=== PATIENT | male | born 1990 | race Caucasian/White ===

== ENCOUNTER 2016-10-07 02:30 | Emergency (ER) | payer OTHER ==
[~2016-10-07] VITALS: Ht 177.8 cm; Wt 82.2 kg
[2016-10-07 02:35] VITALS: Ht 177.8 cm; Wt 82.2 kg
[2016-10-07] MEDS ORDERED: SODIUM CHLORIDE 0.9% 1000ML 1,000 ML IV STA (03:08)
[2016-10-07] MEDS ORDERED: KETOROLAC TROMETHAMINE 30 MG/ML VIAL IV STA (03:08)
[2016-10-07 03:37] LABS: BASO % 0.3 %; BASO ABS # 0.02 K/uL (0-0.2); COMPLETE YES; EOS % 0.3 %; HEMATOCRIT 39.8 % (42-52); IG% 0.2 %; LYMPH % 27.7 %; LYMPH ABS # 1.82 K/uL (1.2-3.4); MEAN CELL VOLUME 86.1 fL (80-100); MEAN CORPUSCULAR HEMOGLOBIN 30.3 pg (25-34); MEAN CORPUSCULAR HGB CONC 35.2 g/dl (32-36); MEAN PLATELET VOLUME 8.8 fL (7.4-10.4); MONO % 10.4 %; NEUT % 61.1 %; PLATELET COUNT 183 K/uL (130-400); RED BLOOD COUNT 4.62 M/uL (4.7-6.1); WHITE BLOOD COUNT 6.56 K/uL (4.8-10.8)
[2016-10-07 03:54] LABS: BUN/CREATININE RATIO 9.7 (10-20); CALCIUM 8.4 mg/dl (8.5-10.1); CREATININE 1.2 mg/dl (0.60-1.40); POTASSIUM 3.7 mmol/L (3.5-5.1)
[2016-10-07 04:03] LABS: ALB/GLOB RATIO 1.2 (0.9-2)
[2016-10-07 04:28] LABS: LYME DISEASE AB IGG NEG (NEG); LYME DISEASE AB IGM NEG (NEG)
[2016-10-07] MEDS ORDERED: MoRPHine SULFATE 4 MG/ML 1 ML CARP\\VIAL IV STA (04:40)
[2016-10-07 04:44] LABS: URINE APPEARANCE CLEAR (CLEAR); URINE BILIRUBIN NEG (NEG); URINE COLOR YELLOW; URINE NITRITE NEG (NEG); URINE PH 6.5 (4.5-7.5); URINE SPECIFIC GRAVITY 1.019 (1.000-1.030); UROBILINOGEN NEG (NEG); ZZUR CULT IF INDIC CLEAN CATCH NO
[2016-10-07 04:52] LABS: MANUAL MICROSCOPIC REQUIRED? NO; REVIEW REQ? NO
--- NOTE | 2016-10-07 05:37 | EMERGENCY ROOM VISIT NOTE ---
History First contact with patient: 02:51 Chief Complaint: ILLNESS Stated Complaint: JOINT/MUSCLE/BONE PAIN,FATIGUE,HEADACHE,HOT/COLD History of Present Illness The patient is a 26 year old male who presents to the Emergency Room with complaints of fatigue, body aches, headache and nausea. The patient states that he has had joint pain and generalized body aches for the past 2 days. He states that prior to that, he had vomiting and diarrhea but this resolved. He reports the fatigue has been gradually worsening. He has had headaches. He reports some blisters on his hands and arms. He rates his overall discomfort an 8/10. The patient does report some neck pain, but is able to move his neck without difficulty. He has not noticed any fevers/chills. He has not taken any medication at home for the pain. Review of Systems A complete 10 point review of systems was reviewed with the patient with pertinent positives and negatives as per history of present illness. All else were negative. Past Medical/Surgical History Medical Problems: (1) Mesenteric lymphadenitis (2) Pneumonia (3) Rib fractures Family History Diabetes mellitus FH: cancer FH: heart disease FHx: lung disease Gallbladder disease Heart disease Hypertension Kidney disease Kidney stones Social History Smoking Status: Never Smoker Alcohol Use: none Drug Use: none Marital Status: single Housing Status: lives with family Occupation Status: employed Current/Historical Medications No Active Prescriptions or Reported Meds Allergies Coded Allergies: Acetaminophen (Verified Allergy, Unknown, Liver damage, 10/08/16) Reported by PT Physical Exam Vital Signs Date Time Temp Pulse Resp B/P (MAP) Pulse Ox O2 Delivery O2 Flow Rate FiO2 10/07/16 05:55 37.4 71 18 102/55 97 10/07/16 04:27 73 18 117/62 98 Room Air 10/07/16 02:35 37.4 91 18 132/74 98 Room Air Physical Exam VITALS: Vitals are noted on the nurse's note and reviewed by myself. Vital signs stable. GENERAL: This is a 26-year-old male, in no acute distress, nondiaphoretic, well- developed well-nourished. SKIN: There are a few small blisters over the hands and forearms. No petechiae or purpura. No further rashes. EARS: External auditory canals clear, tympanic membranes pearly pool without erythema or effusion bilaterally. EYES: Pupils equal round and reactive to light and accommodation. Conjunctivae without injection, sclerae without icterus. MOUTH: Mucous membranes moist. Tonsils are not enlarged. Pharynx without erythema or exudate. NECK: Supple without nuchal rigidity. No lymphadenopathy. Negative Kernig's and Brudzinski's. HEART: Regular rate and rhythm without murmurs gallops or rubs. LUNGS: Clear to auscultation bilaterally without wheezes, rales or rhonchi. ABDOMEN: Positive bowel sounds x 4. Soft, nontender to palpation. NEURO: Patient was alert and oriented to person place and time. Medical Decision & Procedures ER Provider Diagnostic Interpretation: Chest x-ray interpretation: No infiltrates. No cardiomegaly. No acute findings. Laboratory Results 10/07/16 03:20 Red Blood Count 4.62, Mean Corpuscular Volume 86.1, Mean Corpuscular Hemoglobin 30.3, Mean Corpuscular Hemoglobin Concent 35.2, Mean Platelet Volume 8.8, Neutrophils (%) (Auto) 61.1, Lymphocytes (%) (Auto) 27.7, Monocytes (%) (Auto) 10.4, Eosinophils (%) (Auto) 0.3, Basophils (%) (Auto) 0.3, Neutrophils # (Auto ) 4.01, Lymphocytes # (Auto) 1.82, Monocytes # (Auto) 0.68, Eosinophils # (Auto ) 0.02, Basophils # (Auto) 0.02 10/07/16 03:20 Test 10/07/16 03:20 10/07/16 04:25 White Blood Count 6.56 K/uL (4.8-10.8) Red Blood Count 4.62 M/uL (4.7-6.1) Hemoglobin 14.0 g/dL (14.0-18.0) Hematocrit 39.8 % (42-52) Mean Corpuscular Volume 86.1 fL (80-100) Mean Corpuscular Hemoglobin 30.3 pg (25-34) Mean Corpuscular Hemoglobin Concent 35.2 g/dl (32-36) Platelet Count 183 K/uL (130-400) Mean Platelet Volume 8.8 fL (7.4-10.4) Neutrophils (%) (Auto) 61.1 % Lymphocytes (%) (Auto) 27.7 % Monocytes (%) (Auto) 10.4 % Eosinophils (%) (Auto) 0.3 % Basophils (%) (Auto) 0.3 % Neutrophils # (Auto) 4.01 K/uL (1.4-6.5) Lymphocytes # (Auto) 1.82 K/uL (1.2-3.4) Monocytes # (Auto) 0.68 K/uL (0.11-0.59) Eosinophils # (Auto) 0.02 K/uL (0-0.5) Basophils # (Auto) 0.02 K/uL (0-0.2) RDW Standard Deviation 40.1 fL (36.4-46.3) RDW Coefficient of Variation 12.8 % (11.5-14.5) Immature Granulocyte % (Auto) 0.2 % Immature Granulocyte # (Auto) 0.01 K/uL (0.00-0.02) Anion Gap 6.0 mmol/L (3-11) Est Creatinine Clear Calc Drug Dose 98.0 ml/min Estimated GFR () 97.5 Estimated GFR (Non- 84.1 BUN/Creatinine Ratio 9.7 (10-20) Calcium Level 8.4 mg/dl (8.5-10.1) Total Bilirubin 0.4 mg/dl (0.2-1) Aspartate Amino Transf (AST/SGOT) 23 U/L (15-37) Alanine Aminotransferase (ALT/SGPT) 45 U/L (12-78) Alkaline Phosphatase 64 U/L (45-117) Total Creatine Kinase 153 U/L (39-308) Total Protein 6.7 gm/dl (6.4-8.2) Albumin 3.7 gm/dl (3.4-5.0) Globulin 3.0 gm/dl (2.5-4.0) Albumin/Globulin Ratio 1.2 (0.9-2) Lyme Disease IgG Antibody NEG (NEG) Lyme Disease IgM Antibody NEG (NEG) Monoscreen NEG (NEG) Urine Color YELLOW Urine Appearance CLEAR (CLEAR) Urine pH 6.5 (4.5-7.5) Urine Specific [place] 1.019 (1.000-1.030) Urine Protein NEG (NEG) Urine Glucose (UA) NEG (NEG) Urine Ketones NEG (NEG) Urine Occult Blood NEG (NEG) Urine Nitrite NEG (NEG) Urine Bilirubin NEG (NEG) Urine Urobilinogen NEG (NEG) Urine Leukocyte Esterase NEG (NEG) Medications Administered Medications (Trade) Dose Ordered Sig/Yoselyn Route Start Time Stop Time Status Last Admin Dose Admin Sodium Chloride 1,000 ml @ 999 mls/hr Q1H1M STAT IV 10/07/16 03:08 10/07/16 04:08 DC 10/07/16 03:40 999 MLS/HR Ketorolac Tromethamine (Toradol Inj) 30 mg NOW STAT IV 10/07/16 03:08 10/07/16 03:10 DC 10/07/16 03:39 30 MG Morphine Sulfate (MoRPHine SULFATE INJ) 4 mg NOW STAT IV 10/07/16 04:40 10/07/16 04:41 DC 10/07/16 04:49 4 MG ED Course The patient was evaluated as above. Labs were drawn and IV access was obtained. Patient was medicated with 1 L normal saline solution and 30 mg Toradol IV. Patient was reevaluated and stated he had increased pain. He was given 4 mg morphine for his joint pain with good relief. Discharge instructions were reviewed with the patient. The patient verbalized understanding of my assessment and treatment plan and was discharged home in good condition. Medical Decision Differential diagnosis includes tickborne illness, rhabdomyolysis, infection, elect avoid abnormality, pneumonia, meningitis, encephalitis among others. The patient is a 26-year-old male who presents today complaining of fatigue and generalized body aches. Labs revealed no leukocytosis, anemia or concerning electrolyte abnormalities. Chest x-ray was interpreted by myself and does not show any acute findings. Urinalysis was not suggestive of infection. The patient did improve with IV hydration and analgesics. Lyme test was negative. Ehrlichia is pending. There is no meningismus on exam to suggest meningitis. The patient was counseled on conservative measures and will follow-up with his primary care provider. Based on the patient's presentation and work up, I feel the patient is stable for outpatient treatment. The patient was educated to return to the emergency department for any worsening of their current condition or new/concerning symptoms. He will follow up with his PCP. Medication reconciliation: I attest that I have personally reviewed the patient 's current medication list. Blood pressure screening: Patient was found to have normal blood pressure on screening and does not require follow-up. Impression Primary Impression: Body aches Departure Information Dispostion Home / Self-Care Condition GOOD Prescriptions No Active Prescriptions or Reported Meds Referrals No Doctor, Assigned (PCP) Patient Instructions My [facility] Additional Instructions For pain control, you can use the following [id number] medicines (if >12 yo): - Regular strength (325mg/tab) Tylenol (acetaminophen) 2 tabs every 4-6 hours as needed. Do not exceed 12 tablets in a 24 hour period. Avoid taking more than 4 grams (4000 mg) of Tylenol per day. This includes any other sources of acetaminophen you may take on a regular basis. - Regular strength (200 mg/tab) Advil (ibuprofen) 1-2 tabs every 4-6 hours as needed. Do not exceed a dose of 3200 mg per day. Rest and drink plenty of fluids. Follow-up with your primary care provider this week for further evaluation. Return to the emergency department with any worsening or new/concerning symptoms.
[2016-10-07 05:55] VITALS: BP 102/55; PULSE 71; TEMP 37.4; O2SAT 97
--- NOTE | 2016-10-07 07:31 | DIAGNOSTIC IMAGING REPORT ---
SINGLE VIEW CHEST CLINICAL HISTORY: Fever. FINDINGS: An AP, portable, upright chest radiograph is compared to study dated 06/19/2015. The cardiomediastinal silhouette is unremarkable. The lungs and pleural spaces are clear. No pneumothorax is seen. The bony thorax is grossly intact. IMPRESSION: No active disease in the chest. Electronically signed by: Devin Kent M.D. 10/07/2016 7:30 AM Dictated Date/Time: 10/07/2016 7:30 AM
[2016-10-08] MEDS ORDERED: OXYC1TAB3 PO (19:08)
[2016-10-08] MEDS ORDERED: DOXY100T17 PO (19:08)
[2016-10-12 23:35] LABS: EHRLICHIA CHAFF IGG AB <1:64 (<1:64); EHRLICHIA CHAFF IGM AB <1:20 (<1:20)
[2016-10-31] MEDS ORDERED: DIPH1TAB87 PO (21:30)
[2017-01-10] MEDS ORDERED: METH4PAK PO (07:49)
== END 2016-10-07 05:55 | disposition home or self-care (01) ==
LOC: C.EDB 02:32 → C.EDA 05:55
DX: R52 Pain, unspecified (principal); I88.0 Nonspecific mesenteric lymphadenitis; Z83.3 Family history of diabetes mellitus; Z82.49 Family history of ischemic heart disease and other diseases of the circulatory system; Z84.1 Family history of disorders of kidney and ureter; S60.521A Blister (nonthermal) of right hand, initial encounter; S60.522A Blister (nonthermal) of left hand, initial encounter; S50.821A Blister (nonthermal) of right forearm, initial encounter; S50.822A Blister (nonthermal) of left forearm, initial encounter; X58.XXXA Exposure to other specified factors, initial encounter

== ENCOUNTER 2016-10-08 15:57 | Emergency (ER) | payer OTHER ==
[~2016-10-08] VITALS: Ht 177.8 cm; Wt 83.2 kg
[2016-10-08 16:08] VITALS: TEMP 36.9; Ht 177.8 cm; Wt 83.2 kg
[2016-10-08] MEDS ORDERED: KETOROLAC TROMETHAMINE 30 MG/ML VIAL IV STA (17:09)
[2016-10-08] MEDS ORDERED: OXYCODONE HCL IR 5 MG TAB (IMMEDIATE RELEASE) PO STA ×2 (17:09→19:24)
[2016-10-08] MEDS ORDERED: ONDANSETRON INJ 2 MG/ML 2 ML VIAL IV STA (17:09)
[2016-10-08] MEDS ORDERED: SODIUM CHLORIDE 0.9% 1000ML 1,000 ML IV STA (17:09)
--- NOTE | 2016-10-08 17:11 | EMERGENCY ROOM VISIT NOTE ---
History Report prepared by Peggy: Nayan Mendoza Under the Supervision of: Dr. Micheal Crenshaw D.O. First contact with patient: 17:02 Chief Complaint: ILLNESS Stated Complaint: HEADACHE, DIZZINESS, JOINT PAIN, LOWER/UPPER BACK History of Present Illness The patient is a 26 year old male who presents to the Emergency Room with complaints of constant back pain beginning three days ago. He currently rates his discomfort an 8/10 in severity. The patient states that he has neck pain, joint pain, headache, nausea, vomiting, dizziness, fatigue, and muscle pain. He notes that his nausea and vomiting began four nights ago, and everything else began three days ago. He denies recent travel, and urinary symptoms. The patient notes that he was in the ER on two nights ago, and his symptoms did not go away. He states that he was not given any medications. The patient notes that after his visit, his nausea and vomiting went away but then returned. The patient reports that he has been taking ibuprofen for his pain, but it is not working. He states that he has not had symptoms like this before. 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 He denies a history of Lyme disease, and using tobacco, alcohol, or drugs. The patient states he does not have a PCP. Source of History: patient Onset: three days ago Position: back (bilateral) Symptom Intensity: 8/10 Timing: constant Associated Symptoms: + headache, + neck pain, + nausea, + vomiting, + fatigue, No melena, No hematochezia, No urinary symptoms Note: Associated symptoms: joint pain, dizziness, fatigue, and muscle pain. Review of Systems See HPI for pertinent positives & negatives. A total of 10 systems reviewed and were otherwise negative. Past Medical & Surgical Medical Problems: (1) Mesenteric lymphadenitis (2) Pneumonia (3) Rib fractures Family History Diabetes mellitus FH: cancer FH: heart disease FHx: lung disease Gallbladder disease Heart disease Hypertension Kidney disease Kidney stones Social History Smoking Status: Never Smoker Alcohol Use: none Drug Use: none Marital Status: single Housing Status: lives with family Occupation Status: employed Current/Historical Medications Scheduled Doxycycline (Monohydrate) (Doxycycline Monohydrate), 100 MG PO BID Scheduled PRN Oxycodone Immediate Rel Tab (Roxicodone Ir), 1-2 TAB PO Q4H PRN for Severe Pain Allergies Coded Allergies: Acetaminophen (Verified Allergy, Unknown, Liver damage, 10/08/16) Reported by PT Physical Exam Vital Signs Date Time Temp Pulse Resp B/P (MAP) Pulse Ox O2 Delivery O2 Flow Rate FiO2 10/08/16 20:01 69 18 112/65 100 Room Air 10/08/16 19:10 90 12 127/64 98 Room Air 10/08/16 17:38 86 10/08/16 16:08 36.9 93 18 139/78 97 Room Air Physical Exam GENERAL: Patient is awake, alert, and in no acute distress. Patient is resting comfortably and showing mild signs of anxiety EYES: The conjunctivae are clear. The pupils are round and reactive. EARS, NOSE, MOUTH AND THROAT: The nose is without any evidence of any deformity. Mucous membranes are moist tongue is midline NECK: The neck is nontender and supple. RESPIRATORY: Normal respiratory effort is noted there is no evidence of wheezing rhonchi or rales CARDIOVASCULAR: Regular rate and rhythm noted there no murmurs rubs or gallops normal S1 normal S2 GASTROINTESTINAL: The abdomen is soft. Bowel sounds are present in all quadrants. Abdomen is nontender BACK: Diffuse tenderness noted over the midline and paravertebral musculature. No step-off noted range of motion in flexion extension as well as rotation no signs of muscle spasm noted MUSCULOSKELETAL/EXTREMITIES: There is no evidence of gross deformity full range of motion is noted in the hips and shoulders SKIN: There is no obvious evidence of any rash. There are no petechiae, pallor or cyanosis noted. NEUROLOGIC: Patient is awake alert and oriented x3 strength is symmetric patellar reflexes are 2+ bilaterally Medical Decision & Procedures ER Provider Diagnostic Interpretation: X-ray results as stated below per interpretation by me and the radiologist. SINGLE VIEW CHEST CLINICAL HISTORY: Generalized abdominal pain. FINDINGS: An AP, portable, upright chest radiograph is compared to study dated 10/07/2016. The examination is degraded by portable technique and patient rotation. The cardiomediastinal silhouette is unremarkable. The lungs and pleural spaces are clear. No pneumothorax is seen. The bony thorax is grossly intact. IMPRESSION: No active disease in the chest and no significant change from yesterday. Electronically signed by: Devin Kent M.D. 10/08/2016 5:58 PM Dictated Date/Time: 10/08/2016 5:57 PM Laboratory Results 10/08/16 17:17 Red Blood Count 4.97, Mean Corpuscular Volume 84.5, Mean Corpuscular Hemoglobin 30.2, Mean Corpuscular Hemoglobin Concent 35.7, Mean Platelet Volume 9.0, Neutrophils (%) (Auto) 71.1, Lymphocytes (%) (Auto) 17.3, Monocytes (%) (Auto) 11.4, Eosinophils (%) (Auto) 0.0, Basophils (%) (Auto) 0.1, Neutrophils # (Auto ) 5.59, Lymphocytes # (Auto) 1.36, Monocytes # (Auto) 0.90, Eosinophils # (Auto ) 0.00, Basophils # (Auto) 0.01 10/08/16 17:17 Test 10/08/16 17:17 White Blood Count 7.87 K/uL (4.8-10.8) Red Blood Count 4.97 M/uL (4.7-6.1) Hemoglobin 15.0 g/dL (14.0-18.0) Hematocrit 42.0 % (42-52) Mean Corpuscular Volume 84.5 fL (80-100) Mean Corpuscular Hemoglobin 30.2 pg (25-34) Mean Corpuscular Hemoglobin Concent 35.7 g/dl (32-36) Platelet Count 172 K/uL (130-400) Mean Platelet Volume 9.0 fL (7.4-10.4) Neutrophils (%) (Auto) 71.1 % Lymphocytes (%) (Auto) 17.3 % Monocytes (%) (Auto) 11.4 % Eosinophils (%) (Auto) 0.0 % Basophils (%) (Auto) 0.1 % Neutrophils # (Auto) 5.59 K/uL (1.4-6.5) Lymphocytes # (Auto) 1.36 K/uL (1.2-3.4) Monocytes # (Auto) 0.90 K/uL (0.11-0.59) Eosinophils # (Auto) 0.00 K/uL (0-0.5) Basophils # (Auto) 0.01 K/uL (0-0.2) RDW Standard Deviation 38.6 fL (36.4-46.3) RDW Coefficient of Variation 12.6 % (11.5-14.5) Immature Granulocyte % (Auto) 0.1 % Immature Granulocyte # (Auto) 0.01 K/uL (0.00-0.02) Erythrocyte Sedimentation Rate 10 mm/hr (0-14) Anion Gap 8.0 mmol/L (3-11) Est Creatinine Clear Calc Drug Dose 98.0 ml/min Estimated GFR () 97.5 Estimated GFR (Non- 84.1 BUN/Creatinine Ratio 5.7 (10-20) Calcium Level 9.0 mg/dl (8.5-10.1) Total Bilirubin 0.6 mg/dl (0.2-1) Direct Bilirubin 0.2 mg/dl (0-0.2) Aspartate Amino Transf (AST/SGOT) 57 U/L (15-37) Alanine Aminotransferase (ALT/SGPT) 101 U/L (12-78) Alkaline Phosphatase 79 U/L (45-117) Total Creatine Kinase 88 U/L (39-308) C-Reactive Protein 2.67 mg/dl (0-0.29) Total Protein 7.1 gm/dl (6.4-8.2) Albumin 3.9 gm/dl (3.4-5.0) Lipase 146 U/L (73-393) Lyme Disease IgG Antibody NEG (NEG) Lyme Disease IgM Antibody NEG (NEG) Laboratory results per my review. Medications Administered Medications (Trade) Dose Ordered Sig/Yoselyn Route Start Time Stop Time Status Last Admin Dose Admin Ketorolac Tromethamine (Toradol Inj) 30 mg NOW STAT IV 10/08/16 17:09 10/08/16 17:10 DC 10/08/16 17:25 30 MG Sodium Chloride 1,000 ml @ 999 mls/hr Q1H1M STAT IV 10/08/16 17:09 10/08/16 18:09 DC 10/08/16 17:28 999 MLS/HR Ondansetron HCl (Zofran Inj) 4 mg NOW STAT IV 10/08/16 17:09 10/08/16 17:10 DC 10/08/16 17:25 4 MG Oxycodone HCl (Roxicodone Immediate Rel Tab) 5 mg NOW STAT PO 10/08/16 17:09 10/08/16 17:10 DC 10/08/16 17:25 5 MG Ceftriaxone Sodium (Rocephin Inj) 1 gm NOW STAT IV 10/08/16 18:48 10/08/16 18:49 DC 10/08/16 19:29 1 GM Oxycodone HCl (Roxicodone Immediate Rel Tab) 5 mg NOW STAT PO 10/08/16 19:24 10/08/16 19:25 DC 10/08/16 19:28 5 MG Oxycodone HCl (Roxicodone Immediate Rel 5MG Home Pack) 1 homepack UD ONCE PO 10/08/16 19:30 10/08/16 19:31 DC 10/08/16 20:03 1 HOMEPACK ED Course 1703: The patient was evaluated in room A04B. A complete history and physical examination were performed. 170: Ordered Oxycodone HCl 5mg PO, Zofran Inj 4mg IV, NSS 1,000 ml @ 999 mls/ hr IV, Toradol Inj 30mg IV 8: Ordered Rocephin Inj 1gm IV 4: Ordered Oxycodone HCl 5mg PO 0: Ordered Oxycodone HCl 1 homepack PO 2011: Upon reevaluation, the patient is resting comfortably. I discussed the results and treatment plan with him. He verbalized agreement of the treatment plan. The patient was discharged home. Medical Decision Differential diagnosis: Etiologies such as musculoskeletal, disc herniation, fracture, aortic disease, metastatic disease, cord compression, discitis, infection, renal colic, gastrointestinal, acute exacerbation of chronic back pain, sciatica, cauda equina, as well as others were entertained. Medication Reconciliation: I attest that I have personally reviewed the patient' s current medications list. Blood pressure screening: Patient was found to have normal blood pressure on screening and does not require follow-up. The patient is a 26-year-old male who presented to the emergency department for an evaluation of joint pain and back pain. Overall the patient's clinical condition appears to be consistent with a tick borne illness especially given the time year. He was seen recently for similar complaints and at that time his workup did not show any definite cause for his symptoms. The patient's workup today also was not completely consistent with anyone condition. I discussed the patient's laboratory and radiographic studies with him. He was treated with pain medication in the emergency department and on subsequent reevaluation was feeling somewhat improved. He was encouraged to rest and avoid any strenuous activity. He was also encouraged to continue all medications as prescribed and follow-up with a primary care physician as soon as possible. He was also encouraged to return to the emergency department if symptoms worsen or if need arises. I would recommend a repeat Lyme screen because of the patient's condition and lack of positive testing at this time. I discussed this with him. Impression Primary Impression: Joint pain Additional Impressions: Myalgia Possible Lyme Disease Scribe Attestation The scribe's documentation has been prepared under my direction and personally reviewed by me in its entirety. I confirm that the note above accurately reflects all work, treatment, procedures, and medical decision making performed by me. Departure Information Dispostion Home / Self-Care Prescriptions Oxycodone Immediate Rel Tab (ROXICODONE IR) 5 Mg Tab 1-2 TAB PO Q4H Y for Severe Pain, #24 TAB Prov: Micheal Crenshaw, DO 10/08/16 Doxycycline (Monohydrate) (DOXYCYCLINE MONOHYDRATE) 100 Mg Tab 100 MG PO BID, #28 TABS Prov: Micheal Crenshaw, DO 10/08/16 Referrals No Doctor, Assigned (PCP) Forms HOME CARE DOCUMENTATION FORM, IMPORTANT VISIT INFORMATION, WORK / SCHOOL INSTRUCTIONS Patient Instructions ED Joint Pain, My [facility] Additional Instructions Continue using Motrin as prescribed for mild pain. Drink plenty clear liquids. Follow-up with your family doctor for next week. I would recommend a repeat Lyme test in one week. Problem Qualifiers Primary Impression: Joint pain Joint pain location: unspecified Qualified Codes: M25.50 - Pain in unspecified joint
[2016-10-08 17:30] LABS: BASO % 0.1 %; BASO ABS # 0.01 K/uL (0-0.2); COMPLETE YES; IG% 0.1 %; LYMPH % 17.3 %; LYMPH ABS # 1.36 K/uL (1.2-3.4); MEAN CELL VOLUME 84.5 fL (80-100); MEAN CORPUSCULAR HEMOGLOBIN 30.2 pg (25-34); MEAN CORPUSCULAR HGB CONC 35.7 g/dl (32-36); MONO % 11.4 %; NEUT % 71.1 %; PLATELET COUNT 172 K/uL (130-400); RED BLOOD COUNT 4.97 M/uL (4.7-6.1); WHITE BLOOD COUNT 7.87 K/uL (4.8-10.8)
[2016-10-08 17:47] LABS: BUN/CREATININE RATIO 5.7 (10-20); C-REACTIVE PROTEIN 2.67 mg/dl (0-0.29); CREATININE 1.2 mg/dl (0.60-1.40)
--- NOTE | 2016-10-08 17:59 | DIAGNOSTIC IMAGING REPORT ---
SINGLE VIEW CHEST CLINICAL HISTORY: Generalized abdominal pain. FINDINGS: An AP, portable, upright chest radiograph is compared to study dated 10/07/2016. The examination is degraded by portable technique and patient rotation. The cardiomediastinal silhouette is unremarkable. The lungs and pleural spaces are clear. No pneumothorax is seen. The bony thorax is grossly intact. IMPRESSION: No active disease in the chest and no significant change from yesterday. Electronically signed by: Devin Kent M.D. 10/08/2016 5:58 PM Dictated Date/Time: 10/08/2016 5:57 PM
[2016-10-08 18:23] LABS: LYME DISEASE AB IGG NEG (NEG); LYME DISEASE AB IGM NEG (NEG)
[2016-10-08] MEDS ORDERED: CEFTRIAXONE SOD INJ 1 GM ADDVIAL IV STA (18:48)
[2016-10-08] MEDS ORDERED: OXYC1TAB3 PO (19:08)
[2016-10-08] MEDS ORDERED: DOXY100T17 PO (19:08)
[2016-10-08] MEDS ORDERED: OXYCODONE IR HOME PACK PO ONE (19:30)
[2016-10-08 20:01] VITALS: BP 112/65; PULSE 69; O2SAT 100
[2016-10-31] MEDS ORDERED: DIPH1TAB87 PO (21:30)
[2017-01-10] MEDS ORDERED: METH4PAK PO (07:49)
== END 2016-10-08 20:11 | disposition home or self-care (01) ==
LOC: C.EDB 15:59 → C.EDA 20:11
DX: M25.519 Pain in unspecified shoulder (principal); M54.9 Dorsalgia, unspecified; M79.1 Myalgia; Z87.81 Personal history of (healed) traumatic fracture; Z88.6 Allergy status to analgesic agent; Z83.3 Family history of diabetes mellitus; Z80.9 Family history of malignant neoplasm, unspecified; Z82.49 Family history of ischemic heart disease and other diseases of the circulatory system; Z83.79 Family history of other diseases of the digestive system; Z84.1 Family history of disorders of kidney and ureter

== ENCOUNTER 2016-10-31 20:47 | Emergency (ER) | payer OTHER ==
[~2016-10-31] VITALS: Ht 180.3 cm; Wt 79.8 kg
[~2016-10-31 20:47] MED LIST: DOXY100T17 PO; OXYC1TAB3 PO
[2016-10-31 20:59] VITALS: TEMP 36.6; Ht 180.3 cm; Wt 79.8 kg
--- NOTE | 2016-10-31 21:26 | EMERGENCY ROOM VISIT NOTE ---
History Report prepared by Peggy: Chris Frederick Under the Supervision of: Dr. Charli Killian M.D. First contact with patient: 21:05 Chief Complaint: SKIN PROBLEM Stated Complaint: SEVERE POSION CRISTIAN History of Present Illness The patient is a 26 year old male who presents to the Emergency Room with complaints of a constant skin problem for the past five days. The patient states that he has poison cristian, and he has treated it with anti-itch cream, and Benadryl. He states that it itches and it joiner. He additionally states that his hands were numb earlier. The patient states that he had Lyme's disease, though it has been treated and gone away. He states that no one else around him is sick. Source of History: patient Onset: five days ago Position: other (skin) Quality: other (poison cristian) Timing: constant Associated Symptoms: + numbness Note: Associated symptoms: Itching and burning Review of Systems See HPI for pertinent positives & negatives. A total of 10 systems reviewed and were otherwise negative. Past Medical & Surgical Medical Problems: (1) Mesenteric lymphadenitis (2) Pneumonia (3) Rib fractures Old medical records were reviewed. Nurse's notes were reviewed and I agree with. Family History Diabetes mellitus FH: cancer FH: heart disease FHx: lung disease Gallbladder disease Heart disease Hypertension Kidney disease Kidney stones Social History Smoking Status: Never Smoker Alcohol Use: none Drug Use: none Marital Status: single Housing Status: lives with family Occupation Status: employed Current/Historical Medications Scheduled PRN Diphenhydramine Hcl (Benadryl Allergy), 25 MG PO UD PRN for ALLERGIC REACTION Allergies Coded Allergies: Acetaminophen (Verified Allergy, Unknown, Liver damage, 10/08/16) Reported by PT Physical Exam Vital Signs Date Time Temp Pulse Resp B/P (MAP) Pulse Ox O2 Delivery O2 Flow Rate FiO2 10/31/16 21:49 84 16 128/88 99 10/31/16 20:59 36.6 91 18 133/85 100 Room Air Physical Exam General: Non-ill appearing young male in no acute distress. HEENT: Normal cephalic atraumatic. Pupils are equal round and reactive to light. Extraocular movements are intact. Oropharynx is pink with moist mucous membranes. No swelling of the mouth lips or tongue. Neck: Supple with a midline trachea. No meningeal signs or stiffness, no JVD or bruits. No Stridor. Chest: Clear to auscultation bilaterally. No wheezes or rhonchi. No increased work of breathing. Heart: regular rate and rhythm. Abdomen: Soft nontender, nondistended without rebound guarding or rigidity. Extremities: No cyanosis clubbing or edema. No calf tenderness or assymetry Spine/Back. Non tender to palpation. No CVA tenderness Skin: Mild redness to the face from sunburn. Rash on torso as well as upper legs and arms that is raised. Excoriated from itching. Linear in places consistent with poison cristian. Good turgor. Neurologic exam: Cranial nerves two through 12 are intact. Motor and sensation are intact and symmetrical throughout. Medical Decision & Procedures Medications Administered Medications (Trade) Dose Ordered Sig/Yoselyn Route Start Time Stop Time Status Last Admin Dose Admin Prednisone (PredniSONE TAB) 60 mg NOW STAT PO 10/31/16 21:16 10/31/16 21:17 DC 10/31/16 21:23 60 MG ED Course 2104: Past medical records reviewed. The patient was evaluated in room A9, and a complete history and physical examination were performed. 2115: Prednisone 60mg PO 2128: Upon reevaluation, the patient is feeling well. I discussed the results and treatment plan with him. He verbalized agreement of the treatment plan. The patient was discharged home. Medical Decision Differentials include, but are not limited to; poison cristian, infection, scabies. Blood pressure Screening: Patient was found to have normal blood pressure on screening and does not require follow-up. Medication Reconciliation: I attest that I have personally reviewed the patient' s current medication list. This patient comes in with a red itchy rash is very consistent with a allergic dermatitis/poison cristian. There are several linear areas. I do not think this is scabies. It looks more like poison cristian. He is going to keep the area clean use calamine lotion. He is also going use antihistamine such as Benadryl but do not take before drinking, driving, working. He was warned that it could make him drowsy. Also started him on prednisone 60 mg by mouth here as well as a taper over the next 2 weeks. He should return if: worsening of symptoms, fever chills, redness or warmth, any new problems or concerns and follow up with doctor this week for recheck. Impression Primary Impression: Poison cristian [place] Attestation The scribe's documentation has been prepared under my direction and personally reviewed by me in its entirety. I confirm that the note above accurately reflects all work, treatment, procedures, and medical decision making performed by me. Departure Information Dispostion Home / Self-Care Referrals No Doctor, Assigned (PCP) Forms HOME CARE DOCUMENTATION FORM, IMPORTANT VISIT INFORMATION, WORK / SCHOOL INSTRUCTIONS Patient Instructions My [facility] Additional Instructions Rest. Keep skin clean and dry. May apply calamine lotion. For itching, May use Benadryl 25-50 mg every 8 hours as needed Benadryl may make you drowsy and do not take before drinking, driving, working May use Zyrtec or Claritin during the day instead is a or potentially less sedating Do not take these medications with any other medications that make you sleepy Take the prednisone taper as directed 60 mg a day for 3 days then 40 mg a day for 3 days then 20 mg a day for 3 days then 10 mg a day for 3 days then stop Then stop Return if: fever or chills, worsening of symptoms, redness or warmth, any new problems or concerns Up with your doctor this week for recheck if not better
[2016-10-31] MEDS ORDERED: DIPH1TAB PO (21:30)
[2016-10-31 21:49] VITALS: BP 128/88; PULSE 84; O2SAT 99
[2017-01-10] MEDS ORDERED: METH4PAK PO (07:49)
== END 2016-10-31 21:50 | disposition home or self-care (01) ==
LOC: C.EDB 20:47 → C.EDA 21:50
DX: L23.7 Allergic contact dermatitis due to plants, except food (principal); L55.9 Sunburn, unspecified; Z87.01 Personal history of pneumonia (recurrent); Z83.3 Family history of diabetes mellitus; Z80.9 Family history of malignant neoplasm, unspecified; Z82.49 Family history of ischemic heart disease and other diseases of the circulatory system; Z84.1 Family history of disorders of kidney and ureter

== ENCOUNTER 2017-01-09 21:09 | Emergency (ER) | payer OTHER ==
[~2017-01-09] VITALS: Ht 180.3 cm; Wt 80.1 kg
[~2017-01-09 21:09] MED LIST changes: +DIPH1TAB PO; -DOXY100T17 PO; -OXYC1TAB3 PO
[2017-01-09 21:11] VITALS: TEMP 36.7; Ht 180.3 cm; Wt 80.1 kg
[2017-01-09] MEDS ORDERED: KETOROLAC TROMETHAMINE 60 MG/2 ML VIAL IM STA (21:50)
[2017-01-09] MEDS ORDERED: MoRPHine SULFATE 10 MG/ML CARP/VIAL IM STA (21:50)
--- NOTE | 2017-01-09 22:57 | DIAGNOSTIC IMAGING REPORT ---
LUMBAR SPINE 5 VIEWS HISTORY: Low back pain. COMPARISON: Lumbar spine 05/28/2014. FINDINGS: There is no fracture. No subluxation. Disc spaces are preserved. IMPRESSION: No fracture or subluxation within the lumbar spine. Electronically signed by: Octavio Cruz M.D. 01/09/2017 10:56 PM Dictated Date/Time: 01/09/2017 10:54 PM
[2017-01-09] MEDS ORDERED: OXYC1TAB3 PO (23:19)
--- NOTE | 2017-01-09 23:20 | EMERGENCY ROOM VISIT NOTE ---
History First contact with patient: 21:34 Chief Complaint: BACK PAIN Stated Complaint: BACK/HIP/LEG PAIN History of Present Illness The patient is a 26 year old male who presents to the Emergency Room with complaints of low back pain with radiation into the left hip and leg. The patient states that he was at the gym lifting weights and running and when he left, he developed pain and low back. The pain radiates down the left buttock into the leg and the fourth and fifth toes. He has tried heat and ibuprofen without relief. He denies any numbness, weakness, fevers/chills, urinary symptoms or saddle paresthesias. He denies any history of back problems. He rates his discomfort an 8/10. He denies any abdominal pain, nausea or vomiting. Review of Systems A complete 10 point review of systems was reviewed with the patient with pertinent positives and negatives as per history of present illness. All else were negative. Past Medical/Surgical History Medical Problems: (1) Mesenteric lymphadenitis (2) Pneumonia (3) Rib fractures Family History Diabetes mellitus FH: cancer FH: heart disease FHx: lung disease Gallbladder disease Heart disease Hypertension Kidney disease Kidney stones Social History Smoking Status: Never Smoker Alcohol Use: none Drug Use: none Marital Status: single Housing Status: lives with family Occupation Status: employed Current/Historical Medications Scheduled PRN Oxycodone Ir (Roxicodone Ir), 1-2 TAB PO Q4H PRN for Pain Physical Exam Vital Signs Date Time Temp Pulse Resp B/P (MAP) Pulse Ox O2 Delivery O2 Flow Rate FiO2 01/09/17 23:25 87 18 144/87 97 01/09/17 23:07 87 18 144/87 97 Room Air 01/09/17 21:11 36.7 103 18 142/96 96 Room Air Physical Exam VITALS: Vitals are noted on the nurse's note and reviewed by myself. No abnormalities noted. GENERAL: This is a 26-year-old male, in no acute distress, nondiaphoretic, well- developed well-nourished. SKIN: The skin was without rashes. EYES: Pupils equal round and reactive to light and accommodation. The Extraocular movements intact. NECK: Supple without nuchal rigidity. No cervical spine tenderness. HEART: Regular rate and rhythm without murmurs gallops or rubs. LUNGS: Clear to auscultation bilaterally without wheezes, rales or rhonchi. ABDOMEN: Soft, nontender to palpation. MUSCULOSKELETAL: No muscle atrophy, erythema, or edema noted of the back. There is mild tenderness over the lumbar region. There are no muscle spasms. The patient is slow to move around with maximum pain with flexion. Negative straight leg raise test. Strength 5/5 in bilateral lower extremities. NEURO: Patient was alert and oriented to person place and time. Normal sensation to light and sharp touch. Deep tendon reflexes 2+ in the lower extremities. Dorsalis pedis pulse 2+ bilaterally. Medical Decision & Procedures ER Provider Diagnostic Interpretation: LUMBAR SPINE 5 VIEWS HISTORY: Low back pain. COMPARISON: Lumbar spine 05/28/2014. FINDINGS: There is no fracture. No subluxation. Disc spaces are preserved. IMPRESSION: No fracture or subluxation within the lumbar spine. Medications Administered Medications (Trade) Dose Ordered Sig/Yoselyn Route Start Time Stop Time Status Last Admin Dose Admin Ketorolac Tromethamine (Toradol Inj) 60 mg NOW STAT IM 01/09/17 21:50 01/09/17 21:51 DC 01/09/17 21:59 60 MG Morphine Sulfate (MoRPHine SULFATE INJ) 8 mg NOW STAT IM 01/09/17 21:50 01/09/17 21:51 DC 01/09/17 22:00 8 MG Oxycodone HCl (Roxicodone Immediate Rel 5MG Home Pack) 1 homepack UD ONCE PO 01/09/17 23:30 01/09/17 23:31 DC 01/09/17 23:23 1 HOMEPACK ED Course The patient was evaluated as above. Patient was medicated with 8 mg morphine IM and 60 mg Toradol IM. Lumbar spine x-rays was performed and read by radiology as above. Patient was reevaluated and reported some relief. He will be discharged home. Discharge instructions were reviewed with the patient. The patient verbalized understanding of my assessment and treatment plan and was discharged home in good condition. Medical Decision Differential diagnosis includes cauda equina syndrome, cord compression, disc herniation, muscle spasm, lumbar strain, epidural abscess, malignancy, transverse myelitis, urinary tract infection, colitis, diverticulitis, kidney stone, among others. The patient is a 26-year-old male who presents today complaining of lumbar back pain with radiation into the left leg. Lumbar spine x-rays were obtained and read by radiology with no acute findings. Patient was treated with IM morphine and Toradol with some relief. The patient has radicular symptoms and I do feel he will benefit from a course of a steroid. He was given a prescription for pain medication as well. There is nothing on exam to suggest cauda equina syndrome or cord compression. He was advised to follow-up with his primary care provider for further evaluation and treatment of his back pain. The patient was educated to return to the emergency department for any worsening of their current condition, numbness of legs, weakness, bowel/bladder incontinence , or new/concerning symptoms. He verbalized understanding of my assessment is she will plan was discharged home in good condition. Based on the patient's presentation and work up, I feel the patient is stable for outpatient treatment. [] will follow up with []. Medication Reconcilliation Current Medication List: was personally reviewed by me Blood Pressure Screening Patient's blood pressure: Elevated blood pressure Blood pressure disposition: Elevated BP felt to be situational Impression Primary Impression: Lumbar radiculopathy Departure Information Dispostion Home / Self-Care Condition GOOD Prescriptions Methylprednisolone (MEDROL DOSEPAK) 4 Mg Brandon 0 PO DAILY, #1 PKT Prov: Emerita Griffiths .CLEMENTE 01/10/17 Oxycodone Ir (Roxicodone Ir) 5 Mg Tab 1-2 TAB PO Q4H Y for Pain, #15 TAB For Initial Treatment Prov: Emerita Griffiths PA-C 01/09/17 Referrals Mateusz Ramirez M.D. (MEDICAL) (PCP) Patient Instructions My [facility] Additional Instructions You have been treated in the Emergency Department for Back Pain. You have received pain medicine in the emergency department which impairs your ability to operate a vehicle. It is illegal for you to drive after receiving these medicines. You have been prescribed OxyIR to be used for pain control. This is a narcotic medication. You cannot drive or consume alcohol while on this medicine. This medicine should only be used for pain that cannot be controlled with over-the- counter pain medicines. For pain control, you can use the following [id number] medicines (if >12 yo): - Regular strength (325mg/tab) Tylenol (acetaminophen) 2 tabs every 4-6 hours as needed. Do not exceed 12 tablets in a 24 hour period. Avoid taking more than 4 grams (4000 mg) of Tylenol per day. This includes any other sources of acetaminophen you may take on a regular basis. - Regular strength (200 mg/tab) Advil (ibuprofen) 1-2 tabs every 4-6 hours as needed. Do not exceed a dose of 3200 mg per day. If this is an acute injury, ice can be applied to the area of pain for the first 3 days to help decrease pain and inflammation. After the first 3 days, a heating pad can be used over the area for continued soothing relief. You should schedule a follow-up appointment in 2-3 days with your Primary Care Provider for further evaluation and treatment of your back pain. Return to the Emergency Department if your current symptoms worsen despite treatment course outlined above, or if you develop any of the following symptoms : intractable pain despite aforementioned treatment course, loss of control of your bowel or bladder, numbness or tingling in your groin, or development of a fever.
[2017-01-09 23:25] VITALS: BP 144/87; PULSE 87; O2SAT 97
[2017-01-09] MEDS ORDERED: OXYCODONE IR HOME PACK PO ONE (23:30)
[2017-01-10] MEDS ORDERED: METH4PAK PO (07:49)
== END 2017-01-09 23:26 | disposition home or self-care (01) ==
LOC: C.EDB 21:09
DX: M54.16 Radiculopathy, lumbar region (principal); Z87.01 Personal history of pneumonia (recurrent); Z83.3 Family history of diabetes mellitus; Z80.9 Family history of malignant neoplasm, unspecified; Z82.49 Family history of ischemic heart disease and other diseases of the circulatory system; Z84.1 Family history of disorders of kidney and ureter

== ENCOUNTER 2017-11-22 14:51 | Emergency (ER) | payer OTHER ==
[~2017-11-22] VITALS: Ht 175.3 cm; Wt 81.6 kg
[2017-11-22 14:55] VITALS: TEMP 36.9; Ht 175.3 cm; Wt 81.6 kg
[2017-11-22 17:12] LABS: BASO % 0.4 %; BASO ABS # 0.03 K/uL (0-0.2); EOS % 0.1 %; EOS ABS # 0.01 K/uL (0-0.5); HEMATOCRIT 43.4 % (42-52); HEMOGLOBIN 15.2 g/dL (14.0-18.0); IG# 0.01 K/uL (0.00-0.02); LYMPH % 28.9 %; LYMPH ABS # 2.24 K/uL (1.2-3.4); MEAN CELL VOLUME 85.9 fL (80-100); MEAN CORPUSCULAR HEMOGLOBIN 30.1 pg (25-34); MONO % 11.7 %; MONO ABS # 0.91 K/uL (0.11-0.59); NEUT % 58.8 %; NEUT ABS # 4.56 K/uL (1.4-6.5); PLATELET COUNT 207 K/uL (130-400); RED CELL DISTRIBUTION WIDTH CV 12.5 % (11.5-14.5); RED CELL DISTRIBUTION WIDTH SD 39.1 fL (36.4-46.3); WHITE BLOOD COUNT 7.76 K/uL (4.8-10.8)
[2017-11-22] MEDS ORDERED: KETOROLAC TROMETHAMINE 15 MG/ML VIAL IV STA ×2 (17:21→19:09)
[2017-11-22] MEDS ORDERED: ONDANSETRON INJ 2 MG/ML 2 ML VIAL IV STA (17:21)
[2017-11-22] MEDS ORDERED: SODIUM CHLORIDE 0.9% 1000ML 1,000 ML IV STA (17:21)
[2017-11-22 17:32] LABS: ALBUMIN 4.3 gm/dl (3.4-5.0); CALCIUM 9.3 mg/dl (8.5-10.1); CREATININE 1.12 mg/dl (0.60-1.40); POTASSIUM 4.5 mmol/L (3.5-5.1)
--- NOTE | 2017-11-22 18:08 | DIAGNOSTIC IMAGING REPORT ---
CHEST ONE VIEW PORTABLE CLINICAL HISTORY: 27 years-old Male presenting with bodyaches, fever. TECHNIQUE: Portable upright AP view of the chest was obtained. COMPARISON: 10/08/2016. FINDINGS: Cardiomediastinal silhouette normal. Lungs and pleural spaces clear. Osseous structures normal. Upper abdomen normal. IMPRESSION: 1. No acute cardiopulmonary disease. Electronically signed by: Abebe Singletary M.D. 11/22/2017 6:06 PM Dictated Date/Time: 11/22/2017 6:06 PM
[2017-11-22 19:49] LABS: MONOSPOT NEG (NEG)
[2017-11-22] MEDS ORDERED: DOXYCYCLINE HYCLATE 100 MG CAP PO ONE (20:45)
[2017-11-22] MEDS ORDERED: DOXY100C PO (20:47)
--- NOTE | 2017-11-22 20:47 | EMERGENCY ROOM VISIT NOTE ---
History First contact with patient: 17:07 Chief Complaint: ILLNESS Stated Complaint: JOINT/BODY PAIN,DIZZINESS History of Present Illness The patient is a 27 year old male who presents to the Emergency Room with complaints of body aches and fatigue. The patient states that for the past week , he has had some mild body aches and has been feeling fatigued. His symptoms worsened today. He reports pain throughout his body and joints. He has been slightly nauseous but has not vomited. He feels very fatigued. He states that he has felt like he is alternating hot and cold, but has not noticed any fevers. He has had headaches which come and go but does not currently have a headache. He states that the pain is all over but is primarily in his back and hips. He rates his discomfort as 7/10. He states it is a constant, throbbing pain. He does report a history of Lyme diagnosis made last year. He was treated with antibiotics at that time. He denies recent tick bites but does state that he fishes frequently outside. He denies sore throat, cough, chest pain, shortness of breath, abdominal pain, or urinary symptoms. Review of Systems A complete 10 point review of systems was reviewed with the patient with pertinent positives and negatives as per history of present illness. All else were negative. Past Medical/Surgical History Medical Problems: (1) Mesenteric lymphadenitis (2) Pneumonia (3) Rib fractures Family History Diabetes mellitus FH: cancer FH: heart disease FHx: lung disease Gallbladder disease Heart disease Hypertension Kidney disease Kidney stones Social History Smoking Status: Never Smoker Alcohol Use: none Drug Use: none Marital Status: single Housing Status: lives with family Occupation Status: employed Current/Historical Medications Scheduled Doxycycline Hyclate (Vibramycin), 100 MG PO BID Physical Exam Vital Signs Date Time Temp Pulse Resp B/P (MAP) Pulse Ox O2 Delivery O2 Flow Rate FiO2 11/22/17 20:53 70 18 125/65 97 Room Air 11/22/17 18:34 67 18 128/67 97 Room Air 11/22/17 16:55 94 18 153/90 100 Room Air 11/22/17 14:55 36.9 91 20 130/86 98 Room Air Physical Exam VITALS: Vitals are noted on the nurse's note and reviewed by myself. Vital signs stable. GENERAL: This is a 27-year-old male, in no acute distress, nondiaphoretic, well- developed well-nourished. SKIN: No rashes noted. EARS: External auditory canals clear, tympanic membranes pearly pool without erythema or effusion bilaterally. EYES: Pupils equal round and reactive to light and accommodation. MOUTH: Mucous membranes moist. Tonsils are not enlarged. Pharynx without erythema or exudate. NECK: Supple without nuchal rigidity. No lymphadenopathy. No meningismus. HEART: Regular rate and rhythm without murmurs gallops or rubs. LUNGS: Clear to auscultation bilaterally without wheezes, rales or rhonchi. ABDOMEN: Positive bowel sounds x 4. Soft, nontender to palpation. NEURO: Patient was alert and oriented to person place and time. Medical Decision & Procedures ER Provider Diagnostic Interpretation: CHEST ONE VIEW PORTABLE CLINICAL HISTORY: 27 years-old Male presenting with bodyaches, fever. TECHNIQUE: Portable upright AP view of the chest was obtained. COMPARISON: 10/08/2016. FINDINGS: Cardiomediastinal silhouette normal. Lungs and pleural spaces clear. Osseous structures normal. Upper abdomen normal. IMPRESSION: 1. No acute cardiopulmonary disease. Laboratory Results 11/22/17 17:00 Red Blood Count 5.05, Mean Corpuscular Volume 85.9, Mean Corpuscular Hemoglobin 30.1, Mean Corpuscular Hemoglobin Concent 35.0, Mean Platelet Volume 9.0, Neutrophils (%) (Auto) 58.8, Lymphocytes (%) (Auto) 28.9, Monocytes (%) (Auto) 11.7, Eosinophils (%) (Auto) 0.1, Basophils (%) (Auto) 0.4, Neutrophils # (Auto ) 4.56, Lymphocytes # (Auto) 2.24, Monocytes # (Auto) 0.91, Eosinophils # (Auto ) 0.01, Basophils # (Auto) 0.03 11/22/17 17:00 Test 11/22/17 17:00 White Blood Count 7.76 K/uL (4.8-10.8) Red Blood Count 5.05 M/uL (4.7-6.1) Hemoglobin 15.2 g/dL (14.0-18.0) Hematocrit 43.4 % (42-52) Mean Corpuscular Volume 85.9 fL (80-100) Mean Corpuscular Hemoglobin 30.1 pg (25-34) Mean Corpuscular Hemoglobin Concent 35.0 g/dl (32-36) Platelet Count 207 K/uL (130-400) Mean Platelet Volume 9.0 fL (7.4-10.4) Neutrophils (%) (Auto) 58.8 % Lymphocytes (%) (Auto) 28.9 % Monocytes (%) (Auto) 11.7 % Eosinophils (%) (Auto) 0.1 % Basophils (%) (Auto) 0.4 % Neutrophils # (Auto) 4.56 K/uL (1.4-6.5) Lymphocytes # (Auto) 2.24 K/uL (1.2-3.4) Monocytes # (Auto) 0.91 K/uL (0.11-0.59) Eosinophils # (Auto) 0.01 K/uL (0-0.5) Basophils # (Auto) 0.03 K/uL (0-0.2) RDW Standard Deviation 39.1 fL (36.4-46.3) RDW Coefficient of Variation 12.5 % (11.5-14.5) Immature Granulocyte % (Auto) 0.1 % Immature Granulocyte # (Auto) 0.01 K/uL (0.00-0.02) Anion Gap 6.0 mmol/L (3-11) Est Creatinine Clear Calc Drug Dose 100.9 ml/min Estimated GFR () 105.3 Estimated GFR (Non- 90.8 BUN/Creatinine Ratio 11.2 (10-20) Calcium Level 9.3 mg/dl (8.5-10.1) Total Bilirubin 1.0 mg/dl (0.2-1) Aspartate Amino Transf (AST/SGOT) 218 U/L (15-37) Alanine Aminotransferase (ALT/SGPT) 347 U/L (12-78) Alkaline Phosphatase 70 U/L (45-117) Total Protein 8.0 gm/dl (6.4-8.2) Albumin 4.3 gm/dl (3.4-5.0) Globulin 3.7 gm/dl (2.5-4.0) Albumin/Globulin Ratio 1.2 (0.9-2) Lyme Disease IgG Antibody NEG (NEG) Monoscreen NEG (NEG) Medications Administered Medications (Trade) Dose Ordered Sig/Yoselyn Route Start Time Stop Time Status Last Admin Dose Admin Sodium Chloride 1,000 ml @ 999 mls/hr Q1H1M STAT IV 11/22/17 17:21 11/22/17 18:21 DC 11/22/17 17:45 999 MLS/HR Ketorolac Tromethamine (Toradol Inj) 15 mg NOW STAT IV 11/22/17 17:21 11/22/17 17:23 DC 11/22/17 17:46 15 MG Ondansetron HCl (Zofran Inj) 4 mg NOW STAT IV 11/22/17 17:21 11/22/17 17:23 DC 11/22/17 17:45 4 MG Ketorolac Tromethamine (Toradol Inj) 15 mg NOW STAT IV 11/22/17 19:09 11/22/17 19:10 DC 11/22/17 19:25 15 MG Doxycycline Hyclate (Vibramycin Cap) 100 mg ONE ONCE PO 11/22/17 20:45 11/22/17 20:46 DC 11/22/17 20:47 100 MG Medical Decision Differential diagnosis includes Lyme disease, mononucleosis, pneumonia, anaplasmosis, Ehrlichia, among others. The patient is a 27-year-old male who presents today complaining of body aches and fatigue. Labs revealed no leukocytosis or concerning electrolyte abnormality. Labs do show a transaminitis, with AST of 218 and ALT 347. Lyme IgM was found to be positive. Monospot was negative. Due to the transaminitis , I did add testing for Ehrlichia and anaplasmosis. Patient will be treated with doxycycline. He was advised to avoid Tylenol alcohol and follow-up with his PCP for recheck of his LFTs. He was medicated with IV fluids and Toradol with improvement of symptoms. Based on the patient's presentation and work up, I feel the patient is stable for outpatient treatment. The patient was educated to return to the emergency department for any worsening of their current condition or new/concerning symptoms. He will follow up with his PCP. Medication Reconcilliation Current Medication List: was personally reviewed by me Blood Pressure Screening Patient's blood pressure: Normal blood pressure Impression Primary Impression: Lyme disease Departure Information Dispostion Home / Self-Care Condition GOOD Prescriptions Doxycycline Hyclate (VIBRAMYCIN) 100 Mg Cap 100 MG PO BID for 21 Days, #42 CAP Prov: Emerita Griffiths ., CLEMENTE 11/22/17 Referrals Mateusz Ramirez M.D. (MEDICAL) (PCP) Patient Instructions My [facility] Additional Instructions Your Lyme test was found to be positive. Confirmatory testing is pending. You were prescribed doxycycline to be taken twice daily for 21 days. This is an antibiotic. All antibiotics have the potential to cause diarrhea. Stop this medication and contact a medical provider if you were to develop any significant adverse side effects including: wheezing, shortness of breath, passing out, vomiting, or a diffuse rash. Always take antibiotics as directed and COMPLETE the ENTIRE course regardless of the improvement of your symptoms. For pain control, you can use the following [id number] medicines (if >12 yo): - Regular strength (325mg/tab) Tylenol (acetaminophen) 2 tabs every 4-6 hours as needed. Do not exceed 12 tablets in a 24 hour period. Avoid taking more than 4 grams (4000 mg) of Tylenol per day. This includes any other sources of acetaminophen you may take on a regular basis. - Regular strength (200 mg/tab) Advil (ibuprofen) 1-2 tabs every 4-6 hours as needed. Do not exceed a dose of 3200 mg per day. Rest and drink plenty of fluids. Schedule follow-up with your primary care provider this week for recheck. Return to the emergency department with any worsening or new/concerning symptoms.
[2017-11-22 20:53] VITALS: BP 125/65; PULSE 70; O2SAT 97
== END 2017-11-22 21:01 | disposition home or self-care (01) ==
LOC: C.EDB 14:55
DX: A69.20 Lyme disease, unspecified (principal)

== ENCOUNTER 2017-11-26 18:23 | Inpatient (IN) | payer OTHER ==
[~2017-11-26] VITALS: Ht 177.8 cm; Wt 83.1 kg
[~2017-11-26 18:23] MED LIST changes: -DIPH1TAB PO; +DOXY100C PO
[2017-11-26] MEDS ORDERED: SODIUM CHLORIDE 0.9% 1000ML 1,000 ML IV STA (19:33)
[2017-11-26 20:11] LABS: BASO % 0.4 %; BASO ABS # 0.03 K/uL (0-0.2); EOS % 0.6 %; EOS ABS # 0.05 K/uL (0-0.5); HEMATOCRIT 41.3 % (42-52); HEMOGLOBIN 14.1 g/dL (14.0-18.0); IG# 0.02 K/uL (0.00-0.02); LYMPH % 36.7 %; LYMPH ABS # 2.99 K/uL (1.2-3.4); MEAN CELL VOLUME 86.9 fL (80-100); MEAN CORPUSCULAR HEMOGLOBIN 29.7 pg (25-34); MEAN CORPUSCULAR HGB CONC 34.1 g/dl (32-36); MEAN PLATELET VOLUME 8.9 fL (7.4-10.4); MONO % 10.1 %; MONO ABS # 0.82 K/uL (0.11-0.59); NEUT ABS # 4.24 K/uL (1.4-6.5); PLATELET COUNT 211 K/uL (130-400); RED CELL DISTRIBUTION WIDTH CV 12.5 % (11.5-14.5); RED CELL DISTRIBUTION WIDTH SD 40.1 fL (36.4-46.3); WHITE BLOOD COUNT 8.15 K/uL (4.8-10.8)
[2017-11-26 20:30] LABS: ALBUMIN 3.9 gm/dl (3.4-5.0); CALCIUM 8.6 mg/dl (8.5-10.1); CREATININE 1.02 mg/dl (0.60-1.40); POTASSIUM 3.8 mmol/L (3.5-5.1)
--- NOTE | 2017-11-26 20:45 | DIAGNOSTIC IMAGING REPORT ---
CHEST 2 VIEWS ROUTINE CLINICAL HISTORY: lyme eval for cardiomegaly COMPARISON STUDY: Chest radiograph November 22, 2017. FINDINGS: Lung volumes are normal. No pneumothorax or pleural effusion is noted. Pulmonary vascularity is normal. No consolidation is identified. Cardiac size is normal. Mediastinal contours are normal. The appearance of the chest is unchanged. IMPRESSION: No acute cardiopulmonary findings. Normal cardiac size. Electronically signed by: Terell Thompson M.D. 11/26/2017 8:43 PM Dictated Date/Time: 11/26/2017 8:43 PM
[2017-11-26] MEDS ORDERED: CEFTRIAXONE SOD INJ 1 GM ADDVIAL IV STA (20:48)
[2017-11-26] MEDS ORDERED: CEFTRIAXONE SOD 350MG/ML 1 GM VIAL IM STA (21:46)
--- NOTE | 2017-11-26 22:16 | History and Physical ---
History & Physical Date & Time of Service: Nov 26, 2017 at 21:50 Chief Complaint: Salazar, Fatique, Disoriented, Body Pain, Primary Care Physician: No Doctor, Assigned, PCP was Dr. Ramirez; however he retired. He is switching to [facility] PCP per patient History of Present Illness Source: patient This is a 27-year-old male who has no significant past medical history who presents to [facility] secondary to multiple vague complaints 2-3 weeks. Patient was last seen in ED on 11/22/17 secondary to myalgias, body aches, fatigue. Workup revealed transaminitis with AST 218, ALT 345, Lyme IgM positive, Lyme IgG negative, Monospot negative, hepatitis A, B, C negative, Ehrlichia, anaplasmosis negative, EBV antibody high. He was diagnosed with Lyme 's disease, Western blot still pending, was placed on doxycycline 100 mg twice daily for 21 day course and recommended to follow-up PCP. Unfortunately patient 's symptoms progressed, did not improve and patient overall feels worse. He has had 8 doses of doxycycline. Currently he complains of fatigue, joint aches , palpitations "my heart is racing out of my chest," low back pain "like my back is breaking," pelvic discomfort, restlessness, dyspnea on exertion, disoriented, feeling slow and foggy, occasional blurred vision, night sweats. No noted weight loss. Denies documented fever, chills, lightheadedness, dizziness, presyncope symptoms, recent upper respiratory infections, chest pain , nausea, vomiting, diarrhea, constipation, abdominal pain, increased frequency or urgency with urination, dysuria, hematuria, hematochezia, melena. In ED patient had 1 g Rocephin, IV fluids 1 L. Troponin elevated slightly at 0.05, CRP elevated slightly at 0.35. Further lab work revealed white blood cell count 8.15, H&H 14.1 and 41.3 respectively, platelet count 211, AST down to 92, BMP unremarkable. Due to patient failing outpatient treatment, worsening of symptoms, elevated troponin patient is going to be admitted under observation for further evaluation and treatment. Past Medical/Surgical History Medical Problems: (1) Mesenteric lymphadenitis Status: Resolved Surgical Hx: Denies surgical history Family History Diabetes mellitus FH: cancer FH: heart disease FHx: lung disease Gallbladder disease Heart disease Hypertension Kidney disease Kidney stones Social History 32 ounces of caffeine daily, occasional pre work out. Prior to present illness was working out and lifting daily, now currently unable to work out secondary to symptoms. Smoking Status: Never Smoker Smokeless Tobacco Use: Unknown Alcohol Use: none Drug Use: none Marital Status: single Housing status: lives with family (mother, grandmother, "old man.") Occupational Status: employed Immunizations History of Influenza Vaccine: No History of Tetanus Vaccine?: Unknown History of Pneumococcal: No History of Hepatitis B Vaccine: Unknown Allergies Coded Allergies: Acetaminophen (Verified Allergy, Unknown, Liver damage, 10/08/16) Reported by PT Home Medications Scheduled Doxycycline Hyclate (Vibramycin), 100 MG PO BID Review of Systems As noted per HPI, 10 systems reviewed and negative unless noted above. Physical Exam Vital Signs Date Time Temp Pulse Resp B/P (MAP) Pulse Ox O2 Delivery O2 Flow Rate FiO2 11/26/17 19:57 75 11/26/17 19:51 82 16 135/77 98 Room Air 11/26/17 18:31 36.7 92 18 161/90 100 Room Air General Appearance: WD/WN (Male, appears fatigued, appears age), no apparent distress Head: normocephalic, atraumatic Eyes: normal inspection, PERRL, EOMI, sclerae normal ENT: normal ENT inspection, hearing grossly normal, pharynx normal, + pertinent finding (Mucous membranes moist) Neck: supple, no adenopathy, thyroid normal, no JVD Respiratory/Chest: chest non-tender, lungs clear, normal breath sounds, no respiratory distress, no accessory muscle use Cardiovascular: regular rate, rhythm, no edema, no gallop, no JVD, no murmur, normal peripheral pulses Abdomen/GI: normal bowel sounds, non tender, soft, no organomegaly Back: normal inspection, no CVA tenderness, no muscle spasm, normal range of motion (difficulty with sitting forward in bed) Extremities/Musculoskelatal: normal inspection, no calf tenderness, normal capillary refill, no pedal edema, normal range of motion 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/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: 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 as tested, alert, normal mood/affect, oriented x 3 Skin: normal color, warm/dry, no rash Lymphatic: + inguinal node abnormality (left inguinal adenopathy) Diagnostics Laboratory Results Results Past 24 Hours Test 11/26/17 19:59 11/26/17 20:02 Range/Units White Blood Count 8.15 4.8-10.8 K/uL Red Blood Count 4.75 4.7-6.1 M/uL Hemoglobin 14.1 14.0-18.0 g/dL Hematocrit 41.3 42-52 % Mean Corpuscular Volume 86.9 80-100 fL Mean Corpuscular Hemoglobin 29.7 25-34 pg Mean Corpuscular Hemoglobin Concent 34.1 32-36 g/dl Platelet Count 211 130-400 K/uL Mean Platelet Volume 8.9 7.4-10.4 fL Neutrophils (%) (Auto) 52.0 % Lymphocytes (%) (Auto) 36.7 % Monocytes (%) (Auto) 10.1 % Eosinophils (%) (Auto) 0.6 % Basophils (%) (Auto) 0.4 % Neutrophils # (Auto) 4.24 1.4-6.5 K/uL Lymphocytes # (Auto) 2.99 1.2-3.4 K/uL Monocytes # (Auto) 0.82 0.11-0.59 K/uL Eosinophils # (Auto) 0.05 0-0.5 K/uL Basophils # (Auto) 0.03 0-0.2 K/uL RDW Standard Deviation 40.1 36.4-46.3 fL RDW Coefficient of Variation 12.5 11.5-14.5 % Immature Granulocyte % (Auto) 0.2 % Immature Granulocyte # (Auto) 0.02 0.00-0.02 K/uL Sodium Level 141 136-145 mmol/L Potassium Level 3.8 3.5-5.1 mmol/L Chloride Level 104 98-107 mmol/L Carbon Dioxide Level 31 21-32 mmol/L Anion Gap 6.0 3-11 mmol/L Blood Urea Nitrogen 16 7-18 mg/dl Creatinine 1.02 0.60-1.40 mg/dl Est Creatinine Clear Calc Drug Dose 114.3 ml/min Estimated GFR () 117.9 Estimated GFR (Non- 101.7 BUN/Creatinine Ratio 15.3 10-20 Random Glucose 98 70-99 mg/dl Calcium Level 8.6 8.5-10.1 mg/dl Total Bilirubin 0.7 0.2-1 mg/dl Direct Bilirubin 0.2 0-0.2 mg/dl Aspartate Amino Transf (AST/SGOT) 19 15-37 U/L Alanine Aminotransferase (ALT/SGPT) 92 12-78 U/L Alkaline Phosphatase 63 45-117 U/L C-Reactive Protein 0.35 0-0.29 mg/dl Total Protein 7.0 6.4-8.2 gm/dl Albumin 3.9 3.4-5.0 gm/dl Bedside Troponin I 0.050 0-0.045 ng/ml CXR normal EKG ECbpm, NSR, RI 130ms, QTC 431ms, No ST or T wave changes Impression Assessment and Plan Assessment and Plan: This is a 27-year-old male who has no significant past medical history who presents to [facility] secondary to multiple vague complaints 2-3 weeks. Patient was last seen in ED on 11/22/17 secondary to myalgias, body aches, fatigue. Workup revealed transaminitis with AST 218, ALT 345, Lyme IgM positive, Lyme IgG negative, Monospot negative, hepatitis A, B, C negative, Ehrlichia, anaplasmosis negative, EBV antibody high. He was diagnosed with Lyme 's disease, Western blot still pending, was placed on doxycycline 100 mg twice daily for 21 day course and recommended to follow-up PCP. Unfortunately patient's symptoms progressed, did not improve and patient overall feels worse. He has had 8 doses of doxycycline, last dose this morning. In ED patient had 1 g Rocephin, IV fluids 1 L. Troponin elevated slightly at 0.05, CRP elevated slightly at 0.35. Further lab work revealed white blood cell count 8.15, H&H 14.1 and 41.3 respectively, platelet count 211, AST down to 92, BMP unremarkable. Due to patient failing outpatient treatment, worsening of symptoms, elevated troponin patient is going to be admitted under observation for further evaluation and treatment. Ddx: lyme disease, Lyme myocarditis, Lyme pericarditis, undiagnosed viral illness, autoimmune disease Lyme disease with multiple associated symptoms fatigue, malaise, joint aches -Admit under observation telemetry -Give additional 1 g Rocephin this evening, begin 2 g Rocephin daily on 11/27/17 -Consult infectious disease Dr. Oneil secondary to Lyme's disease -Consult cardiology Dr. Norman -Complete echocardiogram to rule out pericarditis/myocarditis secondary to Lyme' s disease -Repeat CBC, BMP in a.m. -Check lumbar spine x-ray secondary to patient complaining of significant discomfort Elevated Troponin -serial troponins -consult cardiology -complete echocardiogram Low Back Pain -check lumbar spine film -allergy to APAP -will add toradol 15mg q6hr prn for pain Agree with above H and P. Briefly 27M presents with ongoing fatigue, Body ache and back pain for few weeks now. Was in ER recently at that time workup showed LYME IG M positive and was discharged on doxycycline. But still not feeling better. Has similar ongoing symptoms. denies fevers. No chest pain or sob. No nausea. No diarrhea. Currently resting comfortably and hemodynamically stable.Denies any tick bite [place] 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 Ig M was positive on 11/22 but igG was negative when he was in Er. Confirmation test pending. Anaplasmosis test is negative.LFTs improved from last Er visit Question of lyme carditis as POC troponin mildly elevated in Er. follow echo. Started on iv Rocephin. Consult ID and Cardiology. Consider other etiologies if Lyme confirmatory test negative. Back pain f/u xray Resuscitation Status Full Code Discussed with patient and girlfriend at bedside. He wishes all measures be taken and to be a full code VTE Prophylaxis Will order VTE Prophylaxis: No Reason for no VTE drug order: Treatment not indicated Reason no Mechanical VTE Order: Treatment not indicated
[2017-11-26 22:41] VITALS: BP 140/86; PULSE 68; TEMP 36.6; O2SAT 97; Ht 177.8 cm; Wt 83.1 kg
--- NOTE | 2017-11-26 22:45 | DIAGNOSTIC IMAGING REPORT ---
LUMBAR SPINE RADIOGRAPHS CLINICAL HISTORY: Low back pain, new onset, +lyme disease, no known injury COMPARISON: Lumbar spine radiographs January 09, 2017. FINDINGS: Alignment of the lumbar spine is anatomic. Vertebral body heights are maintained. There is no fracture or suspicious lesion by radiography. Disc spaces are preserved. There is mild endplate osteophytosis at L4-L5. Sacroiliac joints are intact. The bowel gas pattern is normal. IMPRESSION: 1. No acute lumbar spine fracture or subluxation. 2. Mild osteophytosis at L4-L5 with preserved disc spaces. Electronically signed by: Terell Thompson M.D. 11/26/2017 10:43 PM Dictated Date/Time: 11/26/2017 10:42 PM
[2017-11-26] MEDS ORDERED: IV FLUIDS COMPLETED PRN (23:00)
[2017-11-26] MEDS ORDERED: CEFTRIAXONE SOD INJ 1000 MG in DEXTROSE 5% 50ML IV SCH (23:00)
[2017-11-26 23:33] VITALS: BP 134/84; PULSE 86; TEMP 36.4; O2SAT 97
--- NOTE | 2017-11-26 23:46 | EMERGENCY ROOM VISIT NOTE ---
History Report prepared by Peggy: Marco Lima Under the Supervision of: Dr. Dutch iRco M.D. First contact with patient: 19:25 Chief Complaint: HEADACHE Stated Complaint: QUICK, FATIQUE, DISORIENTED, BODY PAIN, History of Present Illness The patient is a 27 year old male who presents to the Emergency Room with complaints of body aches, joint pain, and headaches x3 weeks. The patient notes he has had the symptoms waxing and waning x3 weeks. He notes x4 days ago he was seen here for the same complaints and had the Lyme Disease test performed, which was positive. He notes he was prescribed Doxycycline, which he has been taking. He came in because he states he isn't getting better. He notes his headaches have become more frequent, but are still waxing and waning, and denies having one at this time. He feels very rundown. He denies having any chest pain or shortness of breath but does feel palpitations. He denies having a fever since starting the Doxycycline. The patient states he is eating/ drinking normally and denies abdominal pain, nausea/vomiting/diarrhea, or any rashes. Source of History: patient Onset: x3 weeks Symptom Intensity: moderate Quality: ache Timing: constant, waxes/wanes Associated Symptoms: + headache, No fevers, No chills, No sorethroat, No cough, No neck pain, No chest pain, No SOB, No nausea, No vomiting, No abdominal pain, No diarrhea, No urinary symptoms, No weakness, No numbness, No rash Review of Systems See HPI for pertinent positives & negatives. A total of 10 systems reviewed and were otherwise negative. Constitutional: No fever, No chills Respiratory: No cough, No shortness of breath Cardiovascular: No chest pain Abdomen: No pain, No nausea, No vomiting, No diarrhea Musculoskeletal: + joint pain, + muscle pain Genitourinary - Male: No hematuria, No dysuria, No urinary frequency, No urinary urgency Neurologic: + problem reported (headache (waxing and waning)) Integumentary: No rash Past Medical & Surgical Medical Problems: (1) Mesenteric lymphadenitis Family History Diabetes mellitus FH: cancer FH: heart disease FHx: lung disease Gallbladder disease Heart disease Hypertension Kidney disease Kidney stones Social History Smoking Status: Never Smoker Alcohol Use: none Drug Use: none Marital Status: single Housing Status: lives with family Occupation Status: employed Current/Historical Medications Scheduled Doxycycline Hyclate (Vibramycin), 100 MG PO BID Allergies Coded Allergies: Acetaminophen (Verified Allergy, Unknown, Liver damage, 10/08/16) Reported by PT Physical Exam Vital Signs Date Time Temp Pulse Resp B/P (MAP) Pulse Ox O2 Delivery O2 Flow Rate FiO2 11/26/17 19:57 75 11/26/17 19:51 82 16 135/77 98 Room Air 11/26/17 18:31 36.7 92 18 161/90 100 Room Air Physical Exam Constitutional: Vital signs reviewed. Eyes: Pupils are equal round reactive to light. Conjunctiva are noninjected. ENT: Pharynx is clear without erythema or exudate. Dry mucous membranes. Neck supple without meningeal signs. Respiratory: Clear to auscultation bilaterally. Breath sounds are equal bilaterally. Cardiovascular: Regular rate and rhythm. No rubs or gallops. GI: Soft, nondistended and nontender. Bowel sounds are present. Musculoskeletal: No peripheral edema. No lower extremity tenderness. Integumentary: No cyanosis. Neurological: The patient is awake and alert. No focal deficits. Psychiatric: Normal affect. Medical Decision & Procedures ER Provider Diagnostic Interpretation: CHEST 2 VIEWS ROUTINE CLINICAL HISTORY: lyme eval for cardiomegaly COMPARISON STUDY: Chest radiograph November 22, 2017. FINDINGS: Lung volumes are normal. No pneumothorax or pleural effusion is noted. Pulmonary vascularity is normal. No consolidation is identified. Cardiac size is normal. Mediastinal contours are normal. The appearance of the chest is unchanged. IMPRESSION: No acute cardiopulmonary findings. Normal cardiac size. Laboratory Results 11/26/17 19:59 Red Blood Count 4.75, Mean Corpuscular Volume 86.9, Mean Corpuscular Hemoglobin 29.7, Mean Corpuscular Hemoglobin Concent 34.1, Mean Platelet Volume 8.9, Neutrophils (%) (Auto) 52.0, Lymphocytes (%) (Auto) 36.7, Monocytes (%) (Auto) 10.1, Eosinophils (%) (Auto) 0.6, Basophils (%) (Auto) 0.4, Neutrophils # (Auto ) 4.24, Lymphocytes # (Auto) 2.99, Monocytes # (Auto) 0.82, Eosinophils # (Auto ) 0.05, Basophils # (Auto) 0.03 11/26/17 19:59 Test 11/26/17 19:59 11/26/17 20:02 White Blood Count 8.15 K/uL (4.8-10.8) Red Blood Count 4.75 M/uL (4.7-6.1) Hemoglobin 14.1 g/dL (14.0-18.0) Hematocrit 41.3 % (42-52) Mean Corpuscular Volume 86.9 fL (80-100) Mean Corpuscular Hemoglobin 29.7 pg (25-34) Mean Corpuscular Hemoglobin Concent 34.1 g/dl (32-36) Platelet Count 211 K/uL (130-400) Mean Platelet Volume 8.9 fL (7.4-10.4) Neutrophils (%) (Auto) 52.0 % Lymphocytes (%) (Auto) 36.7 % Monocytes (%) (Auto) 10.1 % Eosinophils (%) (Auto) 0.6 % Basophils (%) (Auto) 0.4 % Neutrophils # (Auto) 4.24 K/uL (1.4-6.5) Lymphocytes # (Auto) 2.99 K/uL (1.2-3.4) Monocytes # (Auto) 0.82 K/uL (0.11-0.59) Eosinophils # (Auto) 0.05 K/uL (0-0.5) Basophils # (Auto) 0.03 K/uL (0-0.2) RDW Standard Deviation 40.1 fL (36.4-46.3) RDW Coefficient of Variation 12.5 % (11.5-14.5) Immature Granulocyte % (Auto) 0.2 % Immature Granulocyte # (Auto) 0.02 K/uL (0.00-0.02) Erythrocyte Sedimentation Rate 1 mm/hr (0-14) Anion Gap 6.0 mmol/L (3-11) Est Creatinine Clear Calc Drug Dose 114.3 ml/min Estimated GFR () 117.9 Estimated GFR (Non- 101.7 BUN/Creatinine Ratio 15.3 (10-20) Calcium Level 8.6 mg/dl (8.5-10.1) Total Bilirubin 0.7 mg/dl (0.2-1) Direct Bilirubin 0.2 mg/dl (0-0.2) Aspartate Amino Transf (AST/SGOT) 19 U/L (15-37) Alanine Aminotransferase (ALT/SGPT) 92 U/L (12-78) Alkaline Phosphatase 63 U/L (45-117) C-Reactive Protein 0.35 mg/dl (0-0.29) Total Protein 7.0 gm/dl (6.4-8.2) Albumin 3.9 gm/dl (3.4-5.0) Bedside Troponin I 0.050 ng/ml (0-0.045) Medications Administered Medications (Trade) Dose Ordered Sig/Yoselyn Route Start Time Stop Time Status Last Admin Dose Admin Sodium Chloride 1,000 ml @ 999 mls/hr Q1H1M STAT IV 11/26/17 19:33 11/26/17 20:33 DC 11/26/17 20:02 999 MLS/HR Ceftriaxone Sodium (Rocephin Inj) 1 gm NOW STAT IV 11/26/17 20:48 11/26/17 20:49 DC 11/26/17 21:07 1 GM ECG Per My Interpretation Indication: other (Lyme's Disease) Rate (beats per minute): 80 Rhythm: normal sinus Findings: other (no AV block, no PVCs) ED Course Recheck: 2051: Checked on patient. I recommend admission at this time. Patient agrees to this plan. Will call hospitalist for admission. Medical Decision This is a 27-year-old male who presents with headache and fatigue. Differential diagnosis includes Lyme disease, Lyme meningitis, Lyme carditis, dehydration, metabolic derangement. I did perform a limited focused review of portions of the patient's old chart on the electronic medical record. On 11/22 the patient was seen for Joint Pain, Body Aches, and Fatigue. He had a Lyme's Disease Test performed which was positive. The Western Blot is still pending. I did evaluate the patient as noted above. IV access was established. The patient was placed on a continuous court recording monitor. I did order and personally review the patient's 12-lead EKG and chest x-ray as described above. There is no evidence of AV conduction abnormality on twelve-lead EKG. I did order and review the patient's blood work as noted in the electronic medical record. His ESR and white blood cell count are not elevated. CRP is slightly elevated. He does have a positive troponin. I did treat patient with normal saline IV. Concerned about Lyme carditis given the positive troponin. I did treat him with Rocephin 1 g IV and recommended hospitalization. I did discuss the test results with the patient and his significant other. I did discuss the case with the hospitalist and gearcase assembler. Medication Reconcilliation Current Medication List: was personally reviewed by me Blood Pressure Screening Patient's blood pressure: Elevated blood pressure Blood pressure disposition: Referred to PCP Consults Consulting Physician: Dr. Wilkins Returned Call: [phone] Agrees to admit the patient. Impression Primary Impression: Lyme carditis Additional Impression: Elevated troponin Scribe Attestation The scribe's documentation has been prepared under my direct and personally reviewed by me in its entirety. I confirm that the note above accurately reflects all work, treatment, procedures, and medical decision making performed by me. Departure Information Dispostion Being Evaluated By Hospitalist Referrals Mateusz Ramirez M.D. (MEDICAL) (PCP) Forms HOME CARE DOCUMENTATION FORM, IMPORTANT VISIT INFORMATION Patient Instructions My [facility] Problem Qualifiers
[2017-11-26] MEDS: KETOROLAC TROMETHAMINE 15 MG/ML VIAL IM PRN (23:56)
[2017-11-26 23:59] VITALS: O2SAT 97
[2017-11-27 02:08] LABS: HEMATOCRIT 38.6 % (42-52); HEMOGLOBIN 13.4 g/dL (14.0-18.0); MEAN CELL VOLUME 86.4 fL (80-100); MEAN CORPUSCULAR HGB CONC 34.7 g/dl (32-36); MEAN PLATELET VOLUME 8.7 fL (7.4-10.4); PLATELET COUNT 190 K/uL (130-400); RED CELL DISTRIBUTION WIDTH CV 12.5 % (11.5-14.5); RED CELL DISTRIBUTION WIDTH SD 39.2 fL (36.4-46.3); WHITE BLOOD COUNT 8.13 K/uL (4.8-10.8)
[2017-11-27 02:39] LABS: ALBUMIN 3.2 gm/dl (3.4-5.0); CALCIUM 7.9 mg/dl (8.5-10.1); CREATININE 1.03 mg/dl (0.60-1.40); POTASSIUM 3.7 mmol/L (3.5-5.1); TOTAL PROTEIN 6.3 gm/dl (6.4-8.2)
[2017-11-27 03:09] VITALS: BP 117/55; PULSE 60; TEMP 36.3; O2SAT 97
[2017-11-27] MEDS ORDERED: IBUPROFEN 200 MG TAB PO PRN (07:30)
[2017-11-27 08:00] VITALS: BP 118/68; PULSE 62; TEMP 36.6; O2SAT 97
--- NOTE | 2017-11-27 08:37 | Progress Note ---
Progress Note Date of Service Nov 27, 2017. Progress Note ID Consult Dictated #[id number] A/P: 1. Lyme Disease -Continue rocephin, if found to have carditis, will need 21 days IV, otherwise can change back to doxy to complete course -Thank you
--- NOTE | 2017-11-27 08:39 | ECHOCARDIOGRAM REPORT ---
*NOTICE TO RECEIVING CONSTITUTION PARTY AGENCY This information is strictly Confidential and protected under [place] law. [place] law prohibits you from making any further disclosure of this information unless further disclosure is expressly permitted by the written consent of the person to whom it pertains or is authorized by law. A general authorization for the release of medical or other information is not sufficient for this purpose. Hospital accepts no responsibility if the information is made available to any other person, INCLUDING THE PATIENT. Interpretation Summary * Name: DIANA MADISON Study Date: 11/27/2017 07:13 AM BP: 117/55 mmHg * Patient Location: .2E\S\E201\S\1 HR: 60 * : 1990 (M/d/yyyy) Gender: Male Height: 70 in * Age: 27 yrs Ethnicity: CA Weight: 183 lb * Ordering Physician: Anastacia Dunaway * Performed By: Clair Jamison RDCS * * Reason For Study: ELEVATED TROP, LYMES, R/O MYOCARDITIS * BSA: 2.0 m2 * Normal transthoracic echocardiogram. * -- Conclusions -- * Left ventricular systolic function is normal. * The left ventricular wall motion is normal. * Ejection Fraction = 55-60%. * There is no valvular disease * There is no pericardial effusion. Procedure Details * A complete two-dimensional transthoracic echocardiogram was performed (2D, M-mode, Doppler and color flow Doppler). Left Ventricle * The left ventricle is normal in size. * There is normal left ventricular wall thickness. * Ejection Fraction = 55-60%. * Left ventricular systolic function is normal. * The left ventricular wall motion is normal. Right Ventricle * The right ventricle is normal in size and function. Atria * The left atrial size is normal. * Right atrial size is normal. * No ASD detected; PFO is not assessed. Mitral Valve * The mitral valve anatomy is normal. * There is no mitral valve stenosis. * There is trace mitral regurgitation. Tricuspid Valve * The tricuspid valve anatomy is normal. * There is no tricuspid stenosis. * There is trace tricuspid regurgitation. * Doppler findings do not suggest pulmonary hypertension. Aortic Valve * The aortic valve is trileaflet. * No hemodynamically significant valvular aortic stenosis. * No aortic regurgitation is present. Pulmonic Valve * The pulmonic valve is not well visualized. Great Vessels * The aortic root is normal size. Pericardium/Pleural * There is no pericardial effusion. Great Vessels * Normal inferior vena cava diameter and respiratory variation suggests normal central venous pressure. MMode 2D Measurements and Calculations IVSd 0.97 cm IVSs 1.4 cm LVIDd 4.7 cm LVIDs 3.2 cm LVPWd 0.86 cm LVPWs 1.6 cm IVS/LVPW 1.1 FS 31.2 % EDV(Teich) 100.0 ml ESV(Teich) 41.0 ml EF(Teich) 59.0 % EDV(cubed) 100.8 ml ESV(cubed) 32.8 ml EF(cubed) 67.5 % % IVS thick 41.3 % % LVPW thick 81.9 % LV mass(C)d 143.3 grams LV mass(C)dI 71.3 grams/m\S\2 LV mass(C)s 165.2 grams LV mass(C)sI 82.2 grams/m\S\2 SV(Teich) 59.0 ml SI(Teich) 29.4 ml/m\S\2 SV(cubed) 68.0 ml SI(cubed) 33.8 ml/m\S\2 ACS 1.7 cm LA dimension 3.3 cm asc Aorta Diam 2.5 cm LVOT diam 1.9 cm LVOT area 2.9 cm\S\2 LVAd ap4 40.7 cm\S\2 LVLd ap4 9.1 cm EDV(MOD-sp4) 149.9 ml EDV(sp4-el) 154.4 ml LVAs ap4 23.9 cm\S\2 LVLs ap4 7.1 cm ESV(MOD-sp4) 66.6 ml ESV(sp4-el) 67.8 ml EF(MOD-sp4) 55.6 % EF(sp4-el) 56.0 % LVAd ap2 44.0 cm\S\2 LVLd ap2 9.6 cm EDV(MOD-sp2) 165.1 ml EDV(sp2-el) 171.4 ml LVAs ap2 24.0 cm\S\2 LVLs ap2 7.6 cm ESV(MOD-sp2) 63.2 ml ESV(sp2-el) 64.3 ml EF(MOD-sp2) 61.7 % EF(sp2-el) 62.5 % LVLd %diff 4.9 % EDV(MOD-bp) 161.5 ml LVLs %diff 5.8 % ESV(MOD-bp) 67.0 ml EF(MOD-bp) 58.5 % SV(MOD-sp4) 83.4 ml SI(MOD-sp4) 41.5 ml/m\S\2 SV(MOD-sp2) 101.9 ml SI(MOD-sp2) 50.7 ml/m\S\2 SV(MOD-bp) 94.4 ml SI(MOD-bp) 47.0 ml/m\S\2 SV(sp4-el) 86.5 ml SI(sp4-el) 43.0 ml/m\S\2 SV(sp2-el) 107.2 ml SI(sp2-el) 53.3 ml/m\S\2 Doppler Measurements and Calculations MV E max camilla 92.7 cm/sec MV A max camilla 46.9 cm/sec MV E/A 2.0 MV dec time 0.36 sec Ao V2 max 104.4 cm/sec Ao max PG 4.4 mmHg Ao max PG (full) 2.3 mmHg DARIEL(V,A) 2.0 cm\S\2 DARIEL(V,D) 2.0 cm\S\2 LV V1 max PG 2.1 mmHg LV V1 max 71.7 cm/sec PA V2 max 73.9 cm/sec PA max PG 2.2 mmHg
--- NOTE | 2017-11-27 08:40 | INFECT. DISEASE CONSULTATION ---
DATE OF CONSULTATION: 11/27/2017 HISTORY OF PRESENT ILLNESS: This is a 27-year-old gentleman who was admitted to the hospital after worsening myalgias and arthralgias and heart palpitations. He was recently seen in the ER on 11/22/2017 for similar complaints and was diagnosed at that time with Lyme disease. He was also noticed to have transaminitis; however, this has improved on his repeat visit yesterday. He does not admit to any chest pain but does admit to palpitations. He is undergoing a cardiac workup for Lyme carditis. He was placed on Rocephin, and Infectious Diseases was consulted. He denies any fevers or chills. He denies any headache or neck pain. He denies any visual complaints. He has no chest pain, cough, or shortness of breath. He continues with palpitations. He does not feel significantly better today. He denies any nausea, vomiting, diarrhea, or abdominal pain. He does work outside and goes fishing quite a bit but denies any tick bites or rashes that he is aware of. He denies any swollen joints. His remaining review of systems is unremarkable. PAST MEDICAL/SURGICAL HISTORY: Significant for mesenteric lymphadenitis. FAMILY HISTORY: Noncontributory. SOCIAL HISTORY: Significant for daily exercise; however, he denies any tobacco use, alcohol use, or drug use. He lives with family. He denies any sick contacts. ALLERGIES: HE HAS ALLERGIES TO TYLENOL. CURRENT MEDICATIONS: Rocephin, ibuprofen, and Toradol. PHYSICAL EXAMINATION: VITAL SIGNS: He is afebrile, pulse 50, respiratory rate 17, blood pressure 117/55, oxygen saturation is 97% on room air. GENERAL: He is awake, alert, and oriented x3. He is in no acute distress. HEENT: Mucous membranes are moist. Extraocular muscles are intact. CARDIOVASCULAR: Heart is regular. RESPIRATORY: Lungs are clear bilaterally. GASTROINTESTINAL: Abdomen is soft, nontender, nondistended. EXTREMITIES: There is no edema. SKIN: Without rash. He has multiple tattoos. LABORATORY STUDIES: CBC: White blood cell count 8.1, hemoglobin 13.4, platelets 190. Sedimentation rate of 1. Sodium 142, potassium 3.7, chloride 108, bicarbonate 29, BUN 14, creatinine 1.3, glucose 104, AST 14, ALT 76. Troponin mildly elevated. CRP was 0.3. No additional lab results have been done in this admission. On the 6th, he did have a negative Anaplasma titers, negative Lyme IgG but a positive IgM screen. His Western blot is still pending. Ehrlichia was negative. Hamlin was negative. ASSESSMENT AND PLAN: Lyme disease. He will remain on IV Rocephin pending additional cardiac workup. If he is found to have Lyme carditis, he will need 21 days of IV Rocephin. Thank you for this consultation.
--- NOTE | 2017-11-27 10:32 | CARDIOLOGY CONSULTATION ---
DATE OF CONSULTATION: 11/27/2017 REFERRING PHYSICIANS: Willy Lundy MD and FRANCES Naqvi. INDICATIONS: Elevated troponin. HISTORY OF PRESENT ILLNESS: Patient is a 27-year-old male without prior history of cardiac disease, who presented to the Emergency Room at [facility] on 11/22/2017 complaining of dizziness, joint pains, diffuse weakness, myalgia, malaise. Laboratory studies are nonrevealing other than Lyme disease IgM positive. He was begun on oral therapies initially but re-presented on current date of admission 11/26/2017 noting persistent symptoms. He does have a low-grade fever on initial presentation, notes no recent fevers, notes no tachypalpitations, notes no chest pain. Appetite has been only fair. Notes no distinct tick exposure. Notes no history of rheumatic fever, scarlet fever, renal or hepatic disease, but does note ALLERGIES TO TYLENOL with elevation in hepatic enzymes per patient in the past. Hepatic enzymes were elevated on this admission and/or ER visit. Troponin on initial presentation was minimally elevated at 0.05. EKGs are normal. Echocardiogram today is normal. ALLERGIES: ACETAMINOPHEN. HOME MEDICATIONS: None. PAST SURGICAL HISTORY: None. FAMILY HISTORY: Notable for heart disease in maternal side. 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 He is a nonsmoker, nondrinker. He was usually physically active until recent illness. PHYSICAL EXAMINATION: VITAL SIGNS: Heart rate is 62, blood pressure is 118/68, equal in both arms. HEENT: Normocephalic and atraumatic. Nares without discharge. Throat was clear. NECK: Supple without thyromegaly, lymphadenopathy, JVD. There are no carotid bruits. RESPIRATORY: Lungs are clear to auscultation. CARDIOVASCULAR: Regular with normal S1 and S2. There is no murmur, gallop, or rub. PMI is nondisplaced. GASTROINTESTINAL: Abdomen is soft and nontender. There is no palpable hepatosplenomegaly. There is no hepatojugular reflux. EXTREMITIES: Without cyanosis or clubbing. There is no peripheral edema. There are intact distal pulses. NEUROLOGIC: Patient is intact. EKGs done on admission and subsequent followup this morning were normal, no QT prolongation, no AV block. Telemetry reveals no arrhythmias. Echocardiogram demonstrates normal heart. No pericardial effusion. No wall motion abnormalities. LABORATORY DATA: Serial cardiac enzymes have demonstrated subsequent normal troponins. Laboratory studies demonstrate improved transaminases. IMPRESSION: A 27-year-old male with a presentation on 11/22/2017 to noting diffuse myalgias and arthralgias, elevated transaminases. Laboratory studies demonstrate a positive Lyme disease screen. No other hepatic evaluation done today. He re-presented with persistent symptoms. Current evaluation suggests noncardiac complaints. EKG and echocardiogram normal. Troponins are not significantly elevated. Would seek alternate cause of complaints. We will sign off.
[2017-11-27 11:29] VITALS: BP 119/74; PULSE 60; TEMP 36.6; O2SAT 97
[2017-11-27 15:10] VITALS: BP 133/80; PULSE 61; TEMP 36.4; O2SAT 98
[2017-11-27] MEDS: KETOROLAC TROMETHAMINE 15 MG/ML VIAL IM PRN (15:45)
--- NOTE | 2017-11-27 16:40 | Progress Note ---
Medicine Progress Note Date & Time of Visit: Nov 27, 2017 at 16:34. Subjective seen resting in bed, comfortable somewhat weak but awake, alert states back pain is improving still has generalized muscle/joint pains no chest pain, dyspnea no other symptoms Objective Last 8 Hrs Date Time Temp Pulse Resp B/P (MAP) Pulse Ox O2 Delivery O2 Flow Rate FiO2 11/27/17 15:10 36.4 61 18 133/80 (97) 98 Room Air 11/27/17 11:29 36.6 60 18 119/74 (89) 97 Room Air Physical Exam: General- oriented x 3, not in distress, speaks in sentences with no effort Head- atraumatic Eyes- anicteric ENT- oropharynx clear Neck- supple, no JVD, no adenopathy Lungs- clear to auscultation bilaterally Heart- regular rhythm; no murmur, normal rate Abdomen- normal bowel sounds, soft, nontender Extremities- no pretibial edema, no calf tenderness; peripheral pulses intact Neuro- alert, oriented x 3; no gross focal deficits Skin- warm & dry Laboratory Results: Last 24 Hours Test 11/26/17 19:59 11/26/17 20:02 11/27/17 01:58 11/27/17 07:48 White Blood Count 8.15 K/uL 8.13 K/uL Red Blood Count 4.75 M/uL 4.47 M/uL Hemoglobin 14.1 g/dL 13.4 g/dL Hematocrit 41.3 % 38.6 % Mean Corpuscular Volume 86.9 fL 86.4 fL Mean Corpuscular Hemoglobin 29.7 pg 30.0 pg Mean Corpuscular Hemoglobin Concent 34.1 g/dl 34.7 g/dl Platelet Count 211 K/uL 190 K/uL Mean Platelet Volume 8.9 fL 8.7 fL Neutrophils (%) (Auto) 52.0 % Lymphocytes (%) (Auto) 36.7 % Monocytes (%) (Auto) 10.1 % Eosinophils (%) (Auto) 0.6 % Basophils (%) (Auto) 0.4 % Neutrophils # (Auto) 4.24 K/uL Lymphocytes # (Auto) 2.99 K/uL Monocytes # (Auto) 0.82 K/uL Eosinophils # (Auto) 0.05 K/uL Basophils # (Auto) 0.03 K/uL RDW Standard Deviation 40.1 fL 39.2 fL RDW Coefficient of Variation 12.5 % 12.5 % Immature Granulocyte % (Auto) 0.2 % Immature Granulocyte # (Auto) 0.02 K/uL Erythrocyte Sedimentation Rate 1 mm/hr Sodium Level 141 mmol/L 142 mmol/L Potassium Level 3.8 mmol/L 3.7 mmol/L Chloride Level 104 mmol/L 108 mmol/L Carbon Dioxide Level 31 mmol/L 29 mmol/L Anion Gap 6.0 mmol/L 5.0 mmol/L Blood Urea Nitrogen 16 mg/dl 14 mg/dl Creatinine 1.02 mg/dl 1.03 mg/dl Est Creatinine Clear Calc Drug Dose 114.3 ml/min 113.2 ml/min Estimated GFR () 117.9 116.5 Estimated GFR (Non- 101.7 100.5 BUN/Creatinine Ratio 15.3 13.4 Random Glucose 98 mg/dl 104 mg/dl Calcium Level 8.6 mg/dl 7.9 mg/dl Total Bilirubin 0.7 mg/dl 0.5 mg/dl Direct Bilirubin 0.2 mg/dl Aspartate Amino Transf (AST/SGOT) 19 U/L 14 U/L Alanine Aminotransferase (ALT/SGPT) 92 U/L 76 U/L Alkaline Phosphatase 63 U/L 58 U/L C-Reactive Protein 0.35 mg/dl Total Protein 7.0 gm/dl 6.3 gm/dl Albumin 3.9 gm/dl 3.2 gm/dl Bedside Troponin I 0.050 ng/ml Troponin I < 0.015 ng/ml < 0.015 ng/ml Globulin 3.1 gm/dl Albumin/Globulin Ratio 1.0 Assessment & Plan This is a 27-year-old male who has no significant past medical history who presents to [facility] secondary to multiple vague complaints 2-3 weeks. Patient was last seen in ED on 11/22/17 secondary to myalgias, body aches, fatigue. Workup revealed transaminitis with AST 218, ALT 345, Lyme IgM positive, Lyme IgG negative, Monospot negative, hepatitis A, B, C negative, Ehrlichia, anaplasmosis negative, EBV antibody high. He was diagnosed with Lyme 's disease, Western blot still pending, was placed on doxycycline 100 mg twice daily for 21 day course and recommended to follow-up PCP. Unfortunately patient's symptoms progressed, did not improve and patient overall feels worse. He has had 8 doses of doxycycline, last dose this morning. In ED patient had 1 g Rocephin, IV fluids 1 L. Troponin elevated slightly at 0.05, CRP elevated slightly at 0.35. Further lab work revealed white blood cell count 8.15, H&H 14.1 and 41.3 respectively, platelet count 211, AST down to 92, BMP unremarkable. Due to patient failing outpatient treatment, worsening of symptoms, elevated troponin patient is going to be admitted under observation for further evaluation and treatment. Ddx: lyme disease, Lyme myocarditis, Lyme pericarditis, undiagnosed viral illness, autoimmune disease Lyme disease - with multiple associated symptoms fatigue, malaise, joint aches - ER VIst 11/22/09(+) IgM Western Blot pending - given DOxycycline BID, no improvement after 4 days - started on Ceftri IV - symptoms improving today continue IV Ceftriaxone Day 1 appreciate ID SVC recommendations Lyme Carditis Ruled out - EKG and Echo unremarkable - appreciate Cardio SVC recommendations Low Back Pain -check lumbar spine film: 1. No acute lumbar spine fracture or subluxation. 2. Mild osteophytosis at L4-L5 with preserved disc spaces. -Ibuprofen PRN DVT proph SCDs Disposition anticipate d/c home when medically stable Current Inpatient Medications: Current Inpatient Medications Medications (Trade) Dose Ordered Sig/Yoselyn Route Start Time Stop Time Status Last Admin Dose Admin Ceftriaxone Sodium 2000 mg/ Dextrose 70 ml @ 100 mls/hr Q24H IV 11/27/17 20:00 12/07/17 19:59 Ketorolac Tromethamine (Toradol Inj) 15 mg Q6H PRN IM 11/26/17 22:15 12/01/17 22:14 11/27/17 15:45 15 MG Miscellaneous (Iv Fluids Completed) 1 ea PRN PRN N/A 11/26/17 23:00 11/26/18 22:59 Ibuprofen (Advil Tab) 400 mg QID PRN PO 11/27/17 07:30 12/27/17 07:29 11/27/17 08:30 400 MG
[2017-11-27] MEDS: TRAMADOL HCL 50 MG TAB PO PRN (18:16)
[2017-11-27 19:20] VITALS: BP 138/63; PULSE 80; TEMP 36.7; O2SAT 97
[2017-11-27] MEDS: MoRPHine SULFATE 4 MG/ML 1 ML CARP\\VIAL IV PRN (19:43)
[2017-11-27] MEDS: CEFTRIAXONE SOD INJ 2,000 MG in DEXTROSE 5% 50ML 50 ML IV SCH (21:08)
[2017-11-28] VITALS (7 sets, daily range): BP systolic 119–142; BP diastolic 70–82; PULSE 67–74; TEMP 36.4–36.9; O2SAT 96–98
[2017-11-28] MEDS: MoRPHine SULFATE 4 MG/ML 1 ML CARP\\VIAL IV PRN (00:46)
[2017-11-28] MEDS: TRAMADOL HCL 50 MG TAB PO PRN ×3 (07:16→22:00)
[2017-11-28] MEDS ORDERED: KETOROLAC TROMETHAMINE 15 MG/ML VIAL IV PRN (09:30)
[2017-11-28 09:45] LABS: BASO % 0.3 %; BASO ABS # 0.02 K/uL (0-0.2); EOS % 1.8 %; EOS ABS # 0.13 K/uL (0-0.5); HEMATOCRIT 42.1 % (42-52); HEMOGLOBIN 14.5 g/dL (14.0-18.0); IG# 0.02 K/uL (0.00-0.02); LYMPH % 40.4 %; LYMPH ABS # 2.94 K/uL (1.2-3.4); MEAN CELL VOLUME 86.8 fL (80-100); MEAN CORPUSCULAR HEMOGLOBIN 29.9 pg (25-34); MEAN CORPUSCULAR HGB CONC 34.4 g/dl (32-36); MEAN PLATELET VOLUME 8.9 fL (7.4-10.4); MONO % 9.6 %; NEUT % 47.6 %; NEUT ABS # 3.47 K/uL (1.4-6.5); PLATELET COUNT 190 K/uL (130-400); RED CELL DISTRIBUTION WIDTH CV 12.3 % (11.5-14.5); RED CELL DISTRIBUTION WIDTH SD 39.5 fL (36.4-46.3); WHITE BLOOD COUNT 7.28 K/uL (4.8-10.8)
[2017-11-28] MEDS ORDERED: LIDODERM (LIDOCAINE) PATCH 5% TD ONE (09:45)
[2017-11-28 10:15] LABS: CALCIUM 8.5 mg/dl (8.5-10.1); CREATININE 1.07 mg/dl (0.60-1.40); POTASSIUM 3.8 mmol/L (3.5-5.1)
[2017-11-28] MEDS: NSS + 20MEQ KCL 1000ML 1,000 ML IV SCH ×2 (10:45→21:24)
--- NOTE | 2017-11-28 14:56 | Progress Note ---
Medicine Progress Note Date & Time of Visit: Nov 28, 2017 at 14:52. Subjective seen resting in bed, comfortable states he is starting to feel better less myalgias/arthralgias no nausea, chills denies chest pain, dyspnea, palpitations, dizziness no other symptoms Objective Last 8 Hrs Date Time Temp Pulse Resp B/P (MAP) Pulse Ox O2 Delivery O2 Flow Rate FiO2 11/28/17 14:19 36.9 74 18 120/71 (87) 97 11/28/17 10:38 36.7 67 18 127/73 (91) 98 Room Air 11/28/17 09:55 36.4 69 17 97 11/28/17 08:06 Room Air 11/28/17 06:57 36.4 69 17 136/75 (95) 97 Room Air Physical Exam: General- oriented x 3, not in distress, speaks in sentences with no effort Eyes- anicteric Neck- no JVD Lungs- clear breath sounds bilaterally, no rales/wheezes Heart- regular rhythm; no murmur, normal rate Abdomen- normal bowel sounds, soft, nontender Extremities- no pretibial edema, no calf tenderness Neuro- alert, oriented x 3; no gross focal deficits Skin- warm & dry Laboratory Results: Last 24 Hours Test 11/28/17 09:30 White Blood Count 7.28 K/uL Red Blood Count 4.85 M/uL Hemoglobin 14.5 g/dL Hematocrit 42.1 % Mean Corpuscular Volume 86.8 fL Mean Corpuscular Hemoglobin 29.9 pg Mean Corpuscular Hemoglobin Concent 34.4 g/dl Platelet Count 190 K/uL Mean Platelet Volume 8.9 fL Neutrophils (%) (Auto) 47.6 % Lymphocytes (%) (Auto) 40.4 % Monocytes (%) (Auto) 9.6 % Eosinophils (%) (Auto) 1.8 % Basophils (%) (Auto) 0.3 % Neutrophils # (Auto) 3.47 K/uL Lymphocytes # (Auto) 2.94 K/uL Monocytes # (Auto) 0.70 K/uL Eosinophils # (Auto) 0.13 K/uL Basophils # (Auto) 0.02 K/uL RDW Standard Deviation 39.5 fL RDW Coefficient of Variation 12.3 % Immature Granulocyte % (Auto) 0.3 % Immature Granulocyte # (Auto) 0.02 K/uL Sodium Level 142 mmol/L Potassium Level 3.8 mmol/L Chloride Level 106 mmol/L Carbon Dioxide Level 30 mmol/L Anion Gap 6.0 mmol/L Blood Urea Nitrogen 13 mg/dl Creatinine 1.07 mg/dl Est Creatinine Clear Calc Drug Dose 109.0 ml/min Estimated GFR () 111.2 Estimated GFR (Non- 96.0 BUN/Creatinine Ratio 11.7 Random Glucose 64 mg/dl Calcium Level 8.5 mg/dl Assessment & Plan This is a 27-year-old male who has no significant past medical history who presents to [facility] secondary to multiple vague complaints 2-3 weeks. Patient was last seen in ED on 11/22/17 secondary to myalgias, body aches, fatigue. Workup revealed transaminitis with AST 218, ALT 345, Lyme IgM positive, Lyme IgG negative, Monospot negative, hepatitis A, B, C negative, Ehrlichia, anaplasmosis negative, EBV antibody high. He was diagnosed with Lyme 's disease, Western blot still pending, was placed on doxycycline 100 mg twice daily for 21 day course and recommended to follow-up PCP. Unfortunately patient's symptoms progressed, did not improve and patient overall feels worse. He has had 8 doses of doxycycline, last dose this morning. In ED patient had 1 g Rocephin, IV fluids 1 L. Troponin elevated slightly at 0.05, CRP elevated slightly at 0.35. Further lab work revealed white blood cell count 8.15, H&H 14.1 and 41.3 respectively, platelet count 211, AST down to 92, BMP unremarkable. Due to patient failing outpatient treatment, worsening of symptoms, elevated troponin patient is going to be admitted under observation for further evaluation and treatment. Lyme disease - with multiple associated symptoms fatigue, malaise, joint aches - ER VIst 11/22/09(+) IgM Western Blot pending - given DOxycycline BID, no improvement after 4 days - started on Ceftri IV - symptoms continue to improve continue IV Ceftriaxone Day 2 appreciate ID SVC recommendations - PRN analgesics Lyme Carditis Ruled out - EKG and Echo unremarkable - appreciate Cardio SVC recommendations - no chest pain, HR normal Low Back Pain -lumbar spine film: 1. No acute lumbar spine fracture or subluxation. 2. Mild osteophytosis at L4-L5 with preserved disc spaces. -Ibuprofen PRN - resolved DVT proph SCDs Disposition anticipate d/c home when medically stable awaiting antibiotic recommendation from ID Current Inpatient Medications: Current Inpatient Medications Medications (Trade) Dose Ordered Sig/Yoselyn Route Start Time Stop Time Status Last Admin Dose Admin Ceftriaxone Sodium 2000 mg/ Dextrose 70 ml @ 100 mls/hr Q24H IV 11/27/17 20:00 12/07/17 19:59 11/27/17 21:08 100 MLS/HR Miscellaneous (Iv Fluids Completed) 1 ea PRN PRN N/A 11/26/17 23:00 11/26/18 22:59 Ibuprofen (Advil Tab) 400 mg QID PRN PO 11/27/17 07:30 12/27/17 07:29 11/27/17 08:30 400 MG Morphine Sulfate (MoRPHine SULFATE INJ) 3 mg Q4H PRN IV 11/27/17 17:15 12/11/17 17:14 11/28/17 00:46 3 MG Tramadol HCl (Ultram Tab) 50 mg Q6H PRN PO 11/27/17 17:15 12/27/17 17:14 11/28/17 07:16 50 MG Ketorolac Tromethamine (Toradol Inj) 15 mg Q6H PRN IV 11/28/17 09:30 12/03/17 09:29 Lidocaine (Lidoderm Patch 5%) 1 patch QAM TD 11/29/17 09:00 12/29/17 08:59 Miscellaneous (Remove Lidoderm Patch) 1 ea DAILY@21 N/A 11/28/17 21:00 12/28/17 20:59 Potassium Chloride/Sodium Chloride 1,000 ml @ 100 mls/hr Q10H IV 11/28/17 09:45 12/28/17 09:44 11/28/17 10:45 100 MLS/HR
[2017-11-28] MEDS: CEFTRIAXONE SOD INJ 2,000 MG in DEXTROSE 5% 50ML 50 ML IV SCH (20:13)
[2017-11-28] MEDS ORDERED: NURSING VERBAL MED ORDER ONE (20:45)
[2017-11-29] MEDS: TRAMADOL HCL 50 MG TAB PO PRN ×2 (04:53→11:02)
[2017-11-29 07:17] VITALS: BP 112/68; PULSE 66; TEMP 36.6; O2SAT 97
[2017-11-29] MEDS: NSS + 20MEQ KCL 1000ML 1,000 ML IV SCH (07:28)
[2017-11-29] MEDS ORDERED: LIDODERM (LIDOCAINE) PATCH 5% TD SCH (09:00)
--- NOTE | 2017-11-29 09:11 | Progress Note ---
Subjective Date of Service: Nov 29, 2017. Subjective remains afebrile. lyme + previous ER visit, cardiac workup negative for lyme carditis. wbc nml. Problem List Medical Problems: (1) Abdominal pain Status: Acute (2) Alcohol intoxication Status: Acute (3) Anxiety reaction Status: Acute (4) Elevated troponin Status: Acute (5) Lyme carditis Status: Acute (6) Poison [place] Status: Acute (7) Syncope Status: Acute Objective Vital Signs Date Time Temp Pulse Resp B/P (MAP) Pulse Ox O2 Delivery O2 Flow Rate FiO2 11/29/17 07:45 Room Air 11/29/17 07:17 36.6 66 18 112/68 (83) 97 Room Air 11/29/17 00:00 Room Air 11/28/17 23:07 36.9 70 14 142/82 (102) 96 11/28/17 16:10 Room Air 11/28/17 14:19 36.9 74 18 120/71 (87) 97 11/28/17 10:38 36.7 67 18 127/73 (91) 98 Room Air 11/28/17 09:55 36.4 69 17 97 Laboratory Results Last 24 Hours Test 11/28/17 09:30 White Blood Count 7.28 K/uL Red Blood Count 4.85 M/uL Hemoglobin 14.5 g/dL Hematocrit 42.1 % Mean Corpuscular Volume 86.8 fL Mean Corpuscular Hemoglobin 29.9 pg Mean Corpuscular Hemoglobin Concent 34.4 g/dl Platelet Count 190 K/uL Mean Platelet Volume 8.9 fL Neutrophils (%) (Auto) 47.6 % Lymphocytes (%) (Auto) 40.4 % Monocytes (%) (Auto) 9.6 % Eosinophils (%) (Auto) 1.8 % Basophils (%) (Auto) 0.3 % Neutrophils # (Auto) 3.47 K/uL Lymphocytes # (Auto) 2.94 K/uL Monocytes # (Auto) 0.70 K/uL Eosinophils # (Auto) 0.13 K/uL Basophils # (Auto) 0.02 K/uL RDW Standard Deviation 39.5 fL RDW Coefficient of Variation 12.3 % Immature Granulocyte % (Auto) 0.3 % Immature Granulocyte # (Auto) 0.02 K/uL Sodium Level 142 mmol/L Potassium Level 3.8 mmol/L Chloride Level 106 mmol/L Carbon Dioxide Level 30 mmol/L Anion Gap 6.0 mmol/L Blood Urea Nitrogen 13 mg/dl Creatinine 1.07 mg/dl Est Creatinine Clear Calc Drug Dose 109.0 ml/min Estimated GFR () 111.2 Estimated GFR (Non- 96.0 BUN/Creatinine Ratio 11.7 Random Glucose 64 mg/dl Calcium Level 8.5 mg/dl Assessment and Plan (1) Lyme disease Assessment & Plan: cardiac workup negative, can stop IV abx and complete course po doxy x 28 days total as previously prescribed. ok for d/c when otherwise stable.
--- NOTE | 2017-11-29 15:11 | Progress Note ---
Medicine Progress Note Date & Time of Visit: Nov 29, 2017 at 15:07. Subjective seen resting in bed, comfortable states he feels better today back pain resolved myalgias and arthralgias also improving headache is less ambulating with no problems appetite is good no chills no other symptoms states he is ready for discharge today Objective Last 8 Hrs Date Time Temp Pulse Resp B/P (MAP) Pulse Ox O2 Delivery O2 Flow Rate FiO2 11/29/17 07:45 Room Air 11/29/17 07:17 36.6 66 18 112/68 (83) 97 Room Air Physical Exam: General- oriented x 3, not in distress, speaks in sentences with no effort Eyes- anicteric Neck- no JVD Lungs- clear breath sounds bilaterally Heart- regular rhythm; no murmur, normal rate Abdomen- normal bowel sounds, soft, nontender Extremities- no pretibial edema, no calf tenderness Neuro- alert, oriented x 3; no gross focal deficits Skin- warm & dry Assessment & Plan This is a 27-year-old male who has no significant past medical history who presents to [facility] secondary to multiple vague complaints 2-3 weeks. Patient was last seen in ED on 11/22/17 secondary to myalgias, body aches, fatigue. Workup revealed transaminitis with AST 218, ALT 345, Lyme IgM positive, Lyme IgG negative, Monospot negative, hepatitis A, B, C negative, Ehrlichia, anaplasmosis negative, EBV antibody high. He was diagnosed with Lyme 's disease, Western blot still pending, was placed on doxycycline 100 mg twice daily for 21 day course and recommended to follow-up PCP. Unfortunately patient's symptoms progressed, did not improve and patient overall feels worse. He has had 8 doses of doxycycline, last dose this morning. In ED patient had 1 g Rocephin, IV fluids 1 L. Troponin elevated slightly at 0.05, CRP elevated slightly at 0.35. Further lab work revealed white blood cell count 8.15, H&H 14.1 and 41.3 respectively, platelet count 211, AST down to 92, BMP unremarkable. Due to patient failing outpatient treatment, worsening of symptoms, elevated troponin patient is going to be admitted under observation for further evaluation and treatment. Lyme disease - with multiple associated symptoms fatigue, malaise, joint aches - ER VIst 11/22/09(+) IgM Western Blot pending given Doxycycline BID, no improvement after 4 days, hence returned to ER - also had mild troponin elevated at the ER, 0.05 - started on Ceftri IV ID consulted Dr. Rehman - symptoms continued to improve received IV Ceftriaxone x 3 days - recommend to complete Doxycycline x 28 days - ff up with PCP in 3-5 days Lyme Carditis Ruled out - EKG and Echo unremarkable - evaluated by Lie Detector Operator Dr. Norman - no chest pain, HR normal Low Back Pain -lumbar spine film: 1. No acute lumbar spine fracture or subluxation. 2. Mild osteophytosis at L4-L5 with preserved disc spaces. - Ibuprofen PRN - resolved Disposition d/c home ff up with PCP in 3-5 days, details at DC instructions Current Inpatient Medications: Current Inpatient Medications Medications (Trade) Dose Ordered Sig/Yoselyn Route Start Time Stop Time Status Last Admin Dose Admin Ceftriaxone Sodium 2000 mg/ Dextrose 70 ml @ 100 mls/hr Q24H IV 11/27/17 20:00 12/07/17 19:59 11/28/17 20:13 100 MLS/HR Miscellaneous (Iv Fluids Completed) 1 ea PRN PRN N/A 11/26/17 23:00 11/26/18 22:59 Ibuprofen (Advil Tab) 400 mg QID PRN PO 11/27/17 07:30 12/27/17 07:29 11/27/17 08:30 400 MG Morphine Sulfate (MoRPHine SULFATE INJ) 3 mg Q4H PRN IV 11/27/17 17:15 12/11/17 17:14 11/28/17 00:46 3 MG Tramadol HCl (Ultram Tab) 50 mg Q6H PRN PO 11/27/17 17:15 12/27/17 17:14 11/29/17 11:02 50 MG Ketorolac Tromethamine (Toradol Inj) 15 mg Q6H PRN IV 11/28/17 09:30 12/03/17 09:29 Lidocaine (Lidoderm Patch 5%) 1 patch QAM TD 11/29/17 09:00 12/29/17 08:59 11/29/17 08:56 1 PATCH Miscellaneous (Remove Lidoderm Patch) 1 ea DAILY@21 N/A 11/28/17 21:00 12/28/17 20:59 11/28/17 21:24 1 EA Potassium Chloride/Sodium Chloride 1,000 ml @ 100 mls/hr Q10H IV 11/28/17 09:45 12/28/17 09:44 11/29/17 07:28 100 MLS/HR
[2017-11-29] MEDS ORDERED: IBUP-1050 PO (15:17)
[2017-11-29] MEDS ORDERED: DXY100 PO (15:17)
[2017-11-29 15:23] VITALS: BP 116/73; PULSE 70; TEMP 36.5; O2SAT 96
--- NOTE | 2017-11-29 15:24 | Discharge Instructions ---
Discharge Instructions Date of Service Nov 29, 2017. Admission Reason for Admission: Elevated Troponin, Fatigue Discharge Discharge Diagnosis / Problem: LYME DISEASE Discharge Goals Goal(s): Diagnostic testing, Therapeutic intervention Activity Recommendations Activity Limitations: as noted below (NO HEAVY EXERTION UNTIL RE-EVALUATED BY PRIMARY CARE PHYSICIAN) Lifting Limitations: until after follow-up appointment Exercise/Sports Limitations: until after follow-up appointment Driving or Machine Use: NO DRIVING UNTIL RE-EVALUATED BY PRIMARY CARE PHYSICIAN . Instructions / Follow-Up Instructions / Follow-Up PLEASE REVIEW YOUR NEW MEDICATION LIST AND FOLLOW INSTRUCTIONS CAREFULLY. YOU HAVE BEEN PRESCRIBED DOXYCYCLINE ANTIBIOTIC FOR 21 DAYS DURING YOUR LAST ER VISIT. PRESCRIPTION OF ADDITIONAL 4 DAYS OF DOXYCYCLINE IS BEING PRESCRIBED TO YOU TO EXTEND THE TREATMENT COURSE TO 25 DAYS TOTAL. DRINK PLENTY OF FLUIDS. INCLUDE YOGURT IN YOUR DAILY DIET. FOLLOW UP WITH PRIMARY CARE PHYSICIAN DR. ANNE AT THE [facility] ON SUNDAY, DECEMBER 03, 2017 AT 11:15AM. Current Hospital Diet Patient's current hospital diet: Regular Diet Discharge Diet Recommended Diet: Regular Diet Procedures Procedures Performed: CHEST XRAY, LUMBAR SPINE XRAY Pending Studies Studies pending at discharge: no Medical Emergencies . Who to Call and When: Medical Emergencies: If at any time you feel your situation is an emergency, please call 911 immediately. . Non-Emergent Contact Non-Emergency issues call your: Primary Care Provider Call Non-Emergent contact if: you have a fever, your pain is not controlled, your pain is worsening, your pain is unusual for you, your pain is concerning you, you have any medication questions . . "Provider Documentation" section prepared by Willy Lundy. .
--- NOTE | 2017-11-29 15:29 | Discharge Summary ---
Discharge Summary Date of Service Nov 29, 2017. Discharge Summary Admission Date: Nov 26, 2017 at 08:44 Discharge Date: Nov 29, 2017 Discharge Disposition: Home Principal Diagnosis: Lyme disease Secondary Diagnoses/Problems: Please refer to hospital course below. Procedures: ECHO: * -- Conclusions -- * Left ventricular systolic function is normal. * The left ventricular wall motion is normal. * Ejection Fraction = 55-60%. * There is no valvular disease * There is no pericardial effusion. LUMBAR SPINE RADIOGRAPHS CLINICAL HISTORY: Low back pain, new onset, +lyme disease, no known injury COMPARISON: Lumbar spine radiographs January 09, 2017. FINDINGS: Alignment of the lumbar spine is anatomic. Vertebral body heights are maintained. There is no fracture or suspicious lesion by radiography. Disc spaces are preserved. There is mild endplate osteophytosis at L4-L5. Sacroiliac joints are intact. The bowel gas pattern is normal. IMPRESSION: 1. No acute lumbar spine fracture or subluxation. 2. Mild osteophytosis at L4-L5 with preserved disc spaces. Electronically signed by: Terell Thompson M.D. 11/26/2017 10:43 PM CHEST 2 VIEWS ROUTINE CLINICAL HISTORY: lyme eval for cardiomegaly COMPARISON STUDY: Chest radiograph November 22, 2017. FINDINGS: Lung volumes are normal. No pneumothorax or pleural effusion is noted. Pulmonary vascularity is normal. No consolidation is identified. Cardiac size is normal. Mediastinal contours are normal. The appearance of the chest is unchanged. IMPRESSION: No acute cardiopulmonary findings. Normal cardiac size. Electronically signed by: Terell Thompson M.D. 11/26/2017 8:43 PM Consultations: ID Dr. Rehman, Cardiology Dr. Norman Medication Reconciliation New Medications: Doxycycline Hyclate (Doxycycline Hyclate) 100 Mg Cap 1 CAP PO BID for 4 Days, #8 CAP 0 Refills take in addition to previous prescription of Doxycycline 100mg BID x 21 days, to extend total course to 25 days Ibuprofen (Advil) 200 Mg Tab 400 MG PO QID PRN for pain/fever for 7 Days Continued Medications: Doxycycline Hyclate (Vibramycin) 100 Mg Cap 100 MG PO BID for 21 Days, #42 CAP Admission Information HPI (per Admitting provider): This is a 27-year-old male who has no significant past medical history who presents to [facility] secondary to multiple vague complaints 2-3 weeks. Patient was last seen in ED on 11/22/17 secondary to myalgias, body aches, fatigue. Workup revealed transaminitis with AST 218, ALT 345, Lyme IgM positive, Lyme IgG negative, Monospot negative, hepatitis A, B, C negative, Ehrlichia, anaplasmosis negative, EBV antibody high. He was diagnosed with Lyme 's disease, Western blot still pending, was placed on doxycycline 100 mg twice daily for 21 day course and recommended to follow-up PCP. Unfortunately patient 's symptoms progressed, did not improve and patient overall feels worse. He has had 8 doses of doxycycline. Currently he complains of fatigue, joint aches , palpitations "my heart is racing out of my chest," low back pain "like my back is breaking," pelvic discomfort, restlessness, dyspnea on exertion, disoriented, feeling slow and foggy, occasional blurred vision, night sweats. No noted weight loss. Denies documented fever, chills, lightheadedness, dizziness, presyncope symptoms, recent upper respiratory infections, chest pain , nausea, vomiting, diarrhea, constipation, abdominal pain, increased frequency or urgency with urination, dysuria, hematuria, hematochezia, melena. In ED patient had 1 g Rocephin, IV fluids 1 L. Troponin elevated slightly at 0.05, CRP elevated slightly at 0.35. Further lab work revealed white blood cell count 8.15, H&H 14.1 and 41.3 respectively, platelet count 211, AST down to 92, BMP unremarkable. Due to patient failing outpatient treatment, worsening of symptoms, elevated troponin patient is going to be admitted under observation for further evaluation and treatment. Physical Exam (per Admitting): General Appearance: WD/WN (Male, appears fatigued, appears age), no apparent distress Head: normocephalic, atraumatic Eyes: normal inspection, PERRL, EOMI, sclerae normal ENT: normal ENT inspection, hearing grossly normal, pharynx normal, + pertinent finding (Mucous membranes moist) Neck: supple, no adenopathy, thyroid normal, no JVD Respiratory/Chest: chest non-tender, lungs clear, normal breath sounds, no respiratory distress, no accessory muscle use Cardiovascular: regular rate, rhythm, no edema, no gallop, no JVD, no murmur , normal peripheral pulses Abdomen/GI: normal bowel sounds, non tender, soft, no organomegaly Back: normal inspection, no CVA tenderness, no muscle spasm, normal range of motion (difficulty with sitting forward in bed) Extremities/Musculoskelatal: normal inspection, no calf tenderness, normal capillary refill, no pedal edema, normal range of motion 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 Patient was last seen in ED on 11/22/17 secondary to myalgias, body aches, fatigue. Workup revealed transaminitis with AST 218, ALT 345, Lyme IgM positive, Lyme IgG negative, Monospot negative, hepatitis A, B, C negative, Ehrlichia, anaplasmosis negative, EBV antibody high. He was diagnosed with Lyme 's disease, Western blot still pending, was placed on doxycycline 100 mg twice daily for 21 day course and recommended to follow-up PCP. Unfortunately patient's symptoms progressed, did not improve and patient overall feels worse. He has had 8 doses of doxycycline, last dose this morning. In ED patient had 1 g Rocephin, IV fluids 1 L. Troponin elevated slightly at 0.05, CRP elevated slightly at 0.35. Further lab work revealed white blood cell count 8.15, H&H 14.1 and 41.3 respectively, platelet count 211, AST down to 92, BMP unremarkable. Due to patient failing outpatient treatment, worsening of symptoms, elevated troponin patient is going to be admitted under observation for further evaluation and treatment. Lyme disease - with multiple associated symptoms fatigue, malaise, joint aches - ER VIst 11/22/09(+) IgM Western Blot pending given Doxycycline BID, no improvement after 4 days, hence returned to ER - also had mild troponin elevated at the ER, 0.05 - started on Ceftri IV ID consulted Dr. Rehman - symptoms continued to improve while admitted received IV Ceftriaxone x 3 days - recommend to complete Doxycycline x 28 days - ff up with PCP in 3-5 days Lyme Carditis Ruled out - EKG and Echo unremarkable - evaluated by Master Planner Dr. Norman - no chest pain, HR normal Low Back Pain -lumbar spine film: 1. No acute lumbar spine fracture or subluxation. 2. Mild osteophytosis at L4-L5 with preserved disc spaces. - Ibuprofen PRN - resolved Disposition d/c home ff up with PCP in 3-5 days, details at DC instructions Total time spent on discharge = 30 MINUTES This includes examination of the patient, discharge planning, medication reconciliation, and communication with other providers. Discharge Instructions Discharge Instructions Date of Service Nov 29, 2017. Admission Reason for Admission: Elevated Troponin, Fatigue Discharge Discharge Diagnosis / Problem: LYME DISEASE Discharge Goals Goal(s): Diagnostic testing, Therapeutic intervention Activity Recommendations Activity Limitations: as noted below (NO HEAVY EXERTION UNTIL RE-EVALUATED BY PRIMARY CARE PHYSICIAN) Lifting Limitations: until after follow-up appointment Exercise/Sports Limitations: until after follow-up appointment Driving or Machine Use: NO DRIVING UNTIL RE-EVALUATED BY PRIMARY CARE PHYSICIAN . Instructions / Follow-Up Instructions / Follow-Up PLEASE REVIEW YOUR NEW MEDICATION LIST AND FOLLOW INSTRUCTIONS CAREFULLY. YOU HAVE BEEN PRESCRIBED DOXYCYCLINE ANTIBIOTIC FOR 21 DAYS DURING YOUR LAST ER VISIT. PRESCRIPTION OF ADDITIONAL 4 DAYS OF DOXYCYCLINE IS BEING PRESCRIBED TO YOU TO EXTEND THE TREATMENT COURSE TO 25 DAYS TOTAL. DRINK PLENTY OF FLUIDS. INCLUDE YOGURT IN YOUR DAILY DIET. FOLLOW UP WITH PRIMARY CARE PHYSICIAN DR. ANNE AT THE [facility] ON SUNDAY, DECEMBER 03, 2017 AT 11:15AM. Current Hospital Diet Patient's current hospital diet: Regular Diet Discharge Diet Recommended Diet: Regular Diet Procedures Procedures Performed: CHEST XRAY, LUMBAR SPINE XRAY Pending Studies Studies pending at discharge: no Medical Emergencies . Who to Call and When: Medical Emergencies: If at any time you feel your situation is an emergency, please call 911 immediately. . Non-Emergent Contact Non-Emergency issues call your: Primary Care Provider Call Non-Emergent contact if: you have a fever, your pain is not controlled, your pain is worsening, your pain is unusual for you, your pain is concerning you, you have any medication questions . . "Provider Documentation" section prepared by Willy Lundy. .
[2017-11-29 15:37] VITALS: BP 116/73; PULSE 70; TEMP 36.5; O2SAT 96
== END 2017-11-29 16:03 | disposition home or self-care (01) | DRG 869 ==
LOC: C.EDB 18:25 → C.2E 21:33 → ENRESERV 21:45 → C.MS2W 11-28 10:16 → OBSVTOIN 11-29 08:44
PROVIDERS: ADMIT Internal Medicine; ATTEND Internal Medicine
DX: A69.20 Lyme disease, unspecified (principal); M54.5 Low back pain